=== PATIENT | male | born 1960 | race African-American/Black ===

== ENCOUNTER 2019-10-15 21:47 | Observation (INO) ==
[2019-10-15] MEDS ORDERED: PANTOPRAZOLE 40 MG VIAL IV STA (22:39)
[2019-10-15] MEDS ORDERED: LACTATED RINGERS 1,000 ML IV ONE (22:54)
[2019-10-15] MEDS ORDERED: LACTATED RINGERS 1,000 ML IV SCH (23:00)
[2019-10-15 23:41] LABS: Basophils # 0.1 10*3/uL (0.0-0.2); Basophils % 0.5 % (0.0-0.8); Eosinophils % 0.1 % (0.00-10.9); Hematocrit 42.2 VOL% (42.0-52.0); Hemoglobin 13.7 GM/DL (14.0-18.0); Immature Granulocytes % 4.9 %; Immature Granulocytes Absolute 0.51 #; Lymphocytes # 0.8 10*3/uL (1.4-4.0); Lymphocytes % 7.2 % (21.2-54.2); Mean Corpuscular HGB Conc 32.5 GM/DL (32-36); Mean Platelet Volume 13.1 FL (9.6-12.0); Monocytes % 7.2 % (1.7-12.7); Neutrophils % 80.1 % (38.7-73.9); Platelet Count 95 T/CUMM (130-400); Red Blood Count 4.54 MC/CUMM (3.8-5.5); Red Cell Distribution Width 13.1 % (9.3-17.3); White Blood Count 10.4 T/CUMM (4-12)
[2019-10-15 23:47] LABS: INR 0.9; PT Patient Result 10.3 SECS (9.6-12.2)
[2019-10-16] LABS: Alanine Aminotransferase 44 U/L (16-61); Alkaline Phosphatase 116 U/L (45-117); Aspartate Amino Transferase 24 U/L (0-37); Bilirubin,Total < 0.39 MG/DL (0.2-1.0); Blood Urea Nitrogen 52 MG/DL (7-18); Calcium 8.9 MG/DL (8.5-10.1); Estimated Glom Filtration Rate 26 ML/MIN; Glucose 82 MG/DL (74-106); Osmolality,Calculated 289.5 MOS/KG (273-304); Total Protein 7.3 G/DL (6.4-8.3)
[2019-10-16] MEDS ORDERED: LACTULOSE 20 GM/30 ML UDCUP PO PRN (00:39)
[2019-10-16] MEDS ORDERED: ONDANSETRON 4 MG/2 ML VIAL IV PRN (00:39)
[2019-10-16] MEDS ORDERED: BISACODYL 5 MG TABLET PO PRN (00:39)
[2019-10-16] MEDS ORDERED: DOCUSATE SODIUM 100 MG CAPSULE PO PRN (00:39)
[2019-10-16] MEDS ORDERED: ACETAMINOPHEN 325 MG TABLET PO PRN (00:39)
[2019-10-16] MEDS ORDERED: hydrALAZINE 20 MG/1 ML VIAL IV PRN (01:08)
[2019-10-16 01:26] LABS: Risk Ratio 3.28; VLDL CHOLESTEROL 50.2 MG/DL
[2019-10-16] MEDS: SODIUM CHLORIDE 0.9% 1,000 ML IV SCH (02:05)
[2019-10-16 02:30] LABS: Apearance,Urine Clear (Clear); Glucose,Urine (UA) Negative (Negative); Ketones,Urine Negative (Negative); Nitrite,Urine Negative (Negative); Protein,Urine 100 MG/DL; Urine Color Amber (Yellow); Urine Specific Gravity 1.005 (1.001-1.035)
[2019-10-16 02:31] LABS: Bilirubin,Urine Negative (Negative); Blood, Urine 0.03 mg/dL (Negative); Urine Urobilinogen < 2.0 EU/DL (0.2-1.0)
[2019-10-16 02:40] LABS: Granular Casts,Urine 1 /LPF (0-1); Mucus,Urine Occasional /LPF (Occasional); RBC,Urine 2 /HPF (0-4); WBC,Urine 1 /HPF (0-6)
[2019-10-16 04:09] LABS: Lymphocytes 5 % (20-55); Platelet Estimate Decreased; Segmented Neutrophils 87 % (50-85); Total Cells Counted 100
[2019-10-16 04:10] LABS: Microcytosis Slight
[2019-10-16 05:53] LABS: Basophils % 0.6 % (0.0-0.8); Eosinophils # 0.1 10*3/uL (0.0-0.87); Eosinophils % 0.8 % (0.00-10.9); Hematocrit 35.8 VOL% (42.0-52.0); Hemoglobin 11.5 GM/DL (14.0-18.0); Immature Granulocytes % 5.9 %; Immature Granulocytes Absolute 0.42 #; Lymphocytes # 0.7 10*3/uL (1.4-4.0); Lymphocytes % 10.4 % (21.2-54.2); Mean Corpuscular HGB Conc 32.1 GM/DL (32-36); Mean Platelet Volume 13.5 FL (9.6-12.0); Neutrophils % 73.3 % (38.7-73.9); Red Blood Count 3.89 MC/CUMM (3.8-5.5); Red Cell Distribution Width 13.1 % (9.3-17.3); White Blood Count 7.1 T/CUMM (4-12)
[2019-10-16] MEDS ORDERED: MAGNESIUM SULF RIDER 2 GM in PREMIX 1 EACH IV PRN (05:57)
[2019-10-16] MEDS ORDERED: MAGNESIUM SULF RIDER 4 GM in PREMIX 1 EACH IV PRN (05:57)
[2019-10-16 06:02] LABS: Platelet Count 72 T/CUMM (130-400)
[2019-10-16 06:19] LABS: Burr Cells Few; Eosinophils 2 % (0-10); Hypochromasia Slight; Lymphocytes 9 % (20-55); Platelet Estimate Decreased; Segmented Neutrophils 83 % (50-85); Total Cells Counted 100
[2019-10-16 06:20] LABS: Microcytosis Slight
[2019-10-16 06:34] LABS: Calcium 8.3 MG/DL (8.5-10.1); Osmolality,Calculated 290.3 MOS/KG (273-304)
[2019-10-16] MEDS: PANTOPRAZOLE 40 MG VIAL IV SCH (08:46)
[2019-10-16] MEDS: NICOTINE 21 MG/24 HR PATCH TRANSDERM SCH (08:47)
[2019-10-16 11:20] LABS: Hematocrit 35.5 VOL% (42.0-52.0); Hemoglobin 11.7 GM/DL (14.0-18.0)
[2019-10-16] MEDS ORDERED: METOPROLOL TARTRATE 100 MG TABLET PO SCH ×2 (11:50→21:00)
[2019-10-16] MEDS ORDERED: amLODIPine 10 MG TABLET PO SCH (11:50)
[2019-10-16] MEDS ORDERED: METOPROLOL TARTRATE 100 MG TABLET PO ONE (12:01)
[2019-10-16] MEDS ORDERED: amLODIPine 10 MG TABLET PO ONE (12:02)
[2019-10-16] MEDS ORDERED: BISACODYL 5 MG TABLET PO ONE (14:48)
[2019-10-16] MEDS ORDERED: POLYETHYLENE GLYCOL 3350/ELECTROLYTES 4,000 ML BOTTLE PO ONE (18:00)
[2019-10-16 18:46] LABS: Hematocrit 35.6 VOL% (42.0-52.0); Hemoglobin 11.3 GM/DL (14.0-18.0)
[2019-10-16] MEDS ORDERED: MYCOPHENOLIC ACID PO SCH (21:00)
[2019-10-16] MEDS ORDERED: TACROLIMUS 5 MG PO SCH (21:00)
[2019-10-16] MEDS ORDERED: TAMSULOSIN 0.4 MG CAPSULE PO SCH (21:00)
[2019-10-16] MEDS ORDERED: SODIUM BICARBONATE 650 MG TABLET PO SCH (21:00)
[2019-10-16] MEDS ORDERED: ROSUVASTATIN 20 MG TABLET PO SCH (21:00)
[2019-10-17] MEDS: SODIUM CHLORIDE 0.9% 1,000 ML IV SCH (01:12)
[2019-10-17 02:41] LABS: Basophils % 0.6 % (0.0-0.8); Eosinophils # 0.1 10*3/uL (0.0-0.87); Eosinophils % 1.3 % (0.00-10.9); Hematocrit 34.2 VOL% (42.0-52.0); Immature Granulocytes % 4.9 %; Immature Granulocytes Absolute 0.23 #; Lymphocytes # 0.6 10*3/uL (1.4-4.0); Lymphocytes % 13.5 % (21.2-54.2); Mean Corpuscular HGB Conc 32.2 GM/DL (32-36); Mean Platelet Volume 13.8 FL (9.6-12.0); Monocytes % 13.5 % (1.7-12.7); Neutrophils % 66.2 % (38.7-73.9); Platelet Count 69 T/CUMM (130-400); Red Blood Count 3.64 MC/CUMM (3.8-5.5); Red Cell Distribution Width 13.4 % (9.3-17.3); White Blood Count 4.7 T/CUMM (4-12)
[2019-10-17 03:07] LABS: Albumin 3.1 G/DL (3.4-5.0); Bilirubin,Total 0.6 MG/DL (0.2-1.0); Calcium 8.1 MG/DL (8.5-10.1); Osmolality,Calculated 286.5 MOS/KG (273-304); Total Protein 5.6 G/DL (6.4-8.3)
[2019-10-17 03:27] LABS: Platelet Estimate Decreased
[2019-10-17 03:28] LABS: Polychromasia Slight
[2019-10-17] MEDS: SODIUM CHLORIDE 0.9% 500 ML IV SCH ×2 (07:30→17:17)
[2019-10-17] MEDS ORDERED: CHOLECALCIFEROL 1,000 UNIT TABLET PO SCH (09:00)
[2019-10-17] MEDS ORDERED: PREDNISOLONE PO SCH (09:00)
[2019-10-17] MEDS ORDERED: amLODIPine 10 MG TABLET PO SCH (09:00)
[2019-10-17] MEDS ORDERED: LIDOCAINE 2% 5 ML VIAL ONE (09:00)
[2019-10-17] MEDS ORDERED: propofoL 200 MG/20 ML VIAL IV ONE (09:00)
[2019-10-17] MEDS: NICOTINE 21 MG/24 HR PATCH TRANSDERM SCH (09:54)
[2019-10-17] MEDS: PANTOPRAZOLE 40 MG VIAL IV SCH (13:23)
[2019-10-17 16:09] VITALS: BP 181/98
[2019-10-17] MEDS ORDERED: TACROLIMUS 1 MG PO SCH (20:00)
[2019-10-17] MEDS ORDERED: METOPROLOL TARTRATE 50 MG TABLET PO SCH (21:00)
[2019-10-17] MEDS ORDERED: ATORVASTATIN 10 MG TABLET PO SCH (21:00)
[2019-10-17] MEDS ORDERED: MYCOPHENOLATE 180 MG TABLET PO SCH (21:00)
[2019-10-18] MEDS ORDERED: TACROLIMUS 1 MG PO SCH (08:00)
[2019-10-18] MEDS ORDERED: MAGNESIUM CHLORIDE 64 MG TABLET PO SCH (09:00)
== END 2019-10-17 18:14 | disposition home or self-care (01) ==
LOC: N.ED 21:47 → N.EDINP 21:47 → SUATTDRO 10-16 00:39 → N.5E 10-16 01:08
PROVIDERS: ADMIT Internal Medicine Cardiovascular Disease; ATTEND Family Medicine

== ENCOUNTER 2021-09-06 20:18 | Inpatient (IN) ==
[2021-09-06] MEDS ORDERED: cefTRIAXone 1,000 MG in SODIUM CHLORIDE 0.9% 100 ML IV STA (20:52)
[2021-09-06] MEDS ORDERED: METOPROLOL TARTRATE 5 MG/5 ML VIAL IV STA (20:52)
[2021-09-06] MEDS ORDERED: ACETAMINOPHEN 500 MG TABLET PO STA (20:52)
[2021-09-06] MEDS ORDERED: SODIUM CHLORIDE 0.9% 500 ML IV STA (20:52)
[2021-09-06] MEDS ORDERED: PIPERACILLIN/TAZOBACTAM 2,250 MG in SODIUM CHLORIDE 0.9% 100 ML IV STA (20:54)
[2021-09-06] MEDS ORDERED: PIPERACILLIN/TAZOBACTAM 3,375 MG in SODIUM CHLORIDE 0.9% 100 ML IV STA (20:55)
[2021-09-06] MEDS ORDERED: ONDANSETRON 4 MG/2 ML VIAL IV STA (21:02)
[2021-09-06 22:16] LABS: Basophils % 0.3 % (0.0-0.8); Eosinophils # 0.1 10*3/uL (0.0-0.87); Eosinophils % 1.5 % (0.00-10.9); Hematocrit 31.6 VOL% (42.0-52.0); Hemoglobin 9.2 GM/DL (14.0-18.0); Immature Granulocytes % 3.5 %; Immature Granulocytes Absolute 0.12 #; Lymphocytes # 0.3 10*3/uL (1.4-4.0); Mean Corpuscular HGB Conc 29.1 GM/DL (32-36); Mean Corpuscular Volume 98.8 FL (87-102); Mean Platelet Volume 11.6 FL (9.6-12.0); Monocytes % 9.6 % (1.7-12.7); Neutrophils % 76.1 % (38.7-73.9); Platelet Count 73 T/CUMM (130-400); Red Cell Distribution Width 14.7 % (9.3-17.3); White Blood Count 3.4 T/CUMM (4-12)
[2021-09-06 22:30] LABS: Albumin 3.2 G/DL (3.4-5.0); Bilirubin,Total 0.4 MG/DL (0.20-1.00); Potassium 5.7 MMOL/L (3.5-5.1); Total Protein 5.8 G/DL (6.4-8.2)
[2021-09-06] MEDS ORDERED: CALCIUM CHLORIDE 1,000 MG/10 ML SYRINGE IV STA (22:35)
[2021-09-06] MEDS ORDERED: SODIUM BICARBONATE 50 MEQ/50 ML VIAL IV STA (22:35)
[2021-09-06] MEDS ORDERED: DEXTROSE 50% 25 GM/50 ML VIAL IV STA (22:35)
[2021-09-06] MEDS ORDERED: INSULIN REGULAR 100 UNIT/ML IV ONE (22:36)
[2021-09-06] MEDS ORDERED: DEXTROSE 50% 25 GM/50 ML SYRINGE IV STA (22:42)
[2021-09-06] MEDS ORDERED: MORPHINE 2 MG/1 ML SYRINGE IV STA (22:55)
[2021-09-07 00:35] LABS: Bacteria,Urine Occasional /HPF (Few); Bilirubin,Urine Negative (Negative); Blood, Urine Moderate mg/dL (Negative); Glucose,Urine (UA) Negative (Negative); Hyaline Casts,Urine 1 /LPF (0-3); Ketones,Urine Negative (Negative); Mucus,Urine Occasional /LPF (Occasional); Nitrite,Urine Negative (Negative); Protein,Urine 100 MG/DL; RBC,Urine 39 /HPF (0-4); Squamous Epithelial Cell,Urine Occasional /HPF (0-10); Urine Appearance CLEAR (Clear); Urine Color Yellow (Yellow); Urine Specific Gravity 1.013 (1.001-1.035); Urine Urobilinogen < 2.0 EU/DL (0.2-1.0)
[2021-09-07] MEDS ORDERED: GLUCAGON 1 MG VIAL IM PRN (01:29)
[2021-09-07] MEDS ORDERED: MAGNESIUM SULF RIDER 2 GM/50 ML PREMIX IV PRN (01:47)
[2021-09-07 01:55] LABS: INR 1.2; PT Patient Result 13.3 SECS (10.5-12.0); Partial Thromboplastin Time 31.5 SECS (23.8-32.1)
[2021-09-07 01:57] LABS: ABG Base Excess -17.1 MMOL/L (-2.5-2.5); ABG HCO3 11.4 MMOL/L (20-26); ABG Oxygen Saturation 99.1 % (95-100); ABG PH 7.283 (7.35-7.45); ABG TCO2 7.9 MMOL/L (23-27)
[2021-09-07 02:00] LABS: ABG PCO2 17.9 MM HG (35-48)
[2021-09-07] MEDS ORDERED: CEFEPIME 2,000 MG in SODIUM CHLORIDE 0.9% 100 ML IV ONE (02:30)
[2021-09-07] MEDS: SODIUM BICARB INJ 75 MEQ in SODIUM CHLORIDE 0.45% 1,000 ML IV SCH ×2 (02:40→16:41)
[2021-09-07] MEDS ORDERED: VANCOMYCIN INJ 1,500 MG in SODIUM CHLORIDE 0.9% 500 ML IV ONE (03:00)
[2021-09-07 03:45] LABS: Basophils % 0.3 % (0.0-0.8); Eosinophils % 0.6 % (0.00-10.9); Hematocrit 31.3 VOL% (42.0-52.0); Hemoglobin 9.1 GM/DL (14.0-18.0); Immature Granulocytes % 5.5 %; Immature Granulocytes Absolute 0.17 #; Lymphocytes # 0.3 10*3/uL (1.4-4.0); Mean Corpuscular HGB Conc 29.1 GM/DL (32-36); Mean Corpuscular Volume 98.4 FL (87-102); Monocytes % 9.7 % (1.7-12.7); Neutrophils % 73.9 % (38.7-73.9); Platelet Count 75 T/CUMM (130-400); Red Blood Count 3.18 MC/CUMM (3.8-5.5); Red Cell Distribution Width 14.9 % (9.3-17.3); White Blood Count 3.1 T/CUMM (4-12)
[2021-09-07 04:11] LABS: Bilirubin,Total 0.6 MG/DL (0.20-1.00); Calcium 9.5 MG/DL (8.5-10.1); Osmolality,Calculated 319.6 MOS/KG (273-304); Potassium 5.4 MMOL/L (3.5-5.1); Risk Ratio 3.41; Thyroid Stimulating Hormone 3.7 uIU/ml (0.358-3.74); Total Protein 5.5 G/DL (6.4-8.2); VLDL Cholesterol 39.4 MG/DL
[2021-09-07] MEDS: ACETAMINOPHEN 325 MG TABLET PO PRN ×2 (04:40→14:40)
[2021-09-07] MEDS: MAGNESIUM SULF RIDER 4 GM/100 ML PREMIX IV PRN (05:27)
[2021-09-07] MEDS: DOCUSATE SODIUM 100 MG CAPSULE PO SCH ×2 (09:16→21:20)
[2021-09-07] MEDS: PANTOPRAZOLE 40 MG VIAL IV SCH (09:16)
[2021-09-07] MEDS: METOPROLOL TARTRATE 50 MG TABLET PO SCH ×2 (11:06→21:19)
[2021-09-07] MEDS: CEFEPIME 1,000 MG in SODIUM CHLORIDE 0.9% 100 ML IV SCH (14:40)
[2021-09-07 17:07] LABS: Calcium 9.2 MG/DL (8.5-10.1); Osmolality,Calculated 311.1 MOS/KG (273-304); Potassium 5.7 MMOL/L (3.5-5.1)
[2021-09-07] MEDS: SODIUM BICARB INJ 150 MEQ in DEXTROSE 5% 1,000 ML IV SCH (17:10)
[2021-09-07] MEDS: SODIUM ZIRCONIUM CYCLOSILICATE 10 GM PACK PO SCH (21:19)
[2021-09-07] MEDS: MYCOPHENOLATE 180 MG TABLET PO SCH (21:20)
[2021-09-07] MEDS: TACROLIMUS 0.5 MG CAPSULE PO SCH (21:20)
[2021-09-08] MEDS ORDERED: VANCOMYCIN INJ 1,000 MG in SODIUM CHLORIDE 0.9% 250 ML IV PRN (09:00)
[2021-09-08 13:19] LABS: Basophils % 0.3 % (0.0-0.8); Eosinophils # 0.1 10*3/uL (0.0-0.87); Eosinophils % 2.5 % (0.00-10.9); Hematocrit 28.2 VOL% (42.0-52.0); Hemoglobin 8.5 GM/DL (14.0-18.0); Immature Granulocytes % 3.7 %; Immature Granulocytes Absolute 0.13 #; Lymphocytes # 0.3 10*3/uL (1.4-4.0); Lymphocytes % 9.6 % (21.2-54.2); Mean Corpuscular HGB Conc 30.1 GM/DL (32-36); Mean Corpuscular Volume 96.2 FL (87-102); Mean Platelet Volume 12.4 FL (9.6-12.0); Monocytes % 6.8 % (1.7-12.7); NRBC # 0.02 10*3/uL; Neutrophils % 77.1 % (38.7-73.9); Platelet Count 64 T/CUMM (130-400); Red Blood Count 2.93 MC/CUMM (3.8-5.5); Red Cell Distribution Width 14.9 % (9.3-17.3); White Blood Count 3.5 T/CUMM (4-12)
[2021-09-08 13:32] LABS: ABG PH 7.452 (7.35-7.45)
[2021-09-08 13:33] LABS: ABG HCO3 10.2 MMOL/L (20-26); ABG Oxygen Saturation 98.3 % (95-100); ABG PO2 119.4 MM HG (80-95); ABG TCO2 10.6 MMOL/L (23-27)
[2021-09-08 13:37] LABS: ABG PCO2 14.9 MM HG (35-48)
[2021-09-08 14:01] LABS: Uric Acid 7.7 MG/DL (3.5-7.2)
[2021-09-08 14:09] LABS: Calcium 8.2 MG/DL (8.5-10.1); Osmolality,Calculated 306.6 MOS/KG (273-304); Potassium 3.3 MMOL/L (3.5-5.1)
[2021-09-08 14:51] LABS: Albumin 2.4 G/DL (3.4-5.0); Bilirubin,Total 0.91 MG/DL (0.20-1.00)
[2021-09-08 14:52] LABS: Osmolality,Calculated 309.4 MOS/KG (273-304); Potassium 4.1 MMOL/L (3.5-5.1)
[2021-09-08 15:17] LABS: Anisocytosis 2+; Band Neutrophils 5 % (0-10); Burr Cells 2+; Eosinophils 0 % (0-10); Lymphocytes 11 % (20-55); Segmented Neutrophils 79 % (50-85); Total Cells Counted 100
[2021-09-08 15:18] LABS: Platelet Estimate Decreased
[2021-09-08] MEDS: MAGNESIUM SULF RIDER 4 GM/100 ML PREMIX IV PRN (17:05)
[2021-09-08] MEDS: ACETAMINOPHEN 325 MG TABLET PO PRN (17:05)
[2021-09-08] MEDS ORDERED: VANCOMYCIN INJ 1,000 MG in SODIUM CHLORIDE 0.9% 250 ML IV ONE (18:00)
[2021-09-08] MEDS: SODIUM BICARB INJ 150 MEQ in DEXTROSE 5% 1,000 ML IV SCH ×2 (19:52→23:25)
[2021-09-08] MEDS: CEFEPIME 1,000 MG in SODIUM CHLORIDE 0.9% 100 ML IV SCH ×2 (19:52→19:53)
[2021-09-08] MEDS: MYCOPHENOLATE 180 MG TABLET PO SCH ×2 (19:55→21:27)
[2021-09-08] MEDS: DOCUSATE SODIUM 100 MG CAPSULE PO SCH ×2 (19:56→21:28)
[2021-09-08] MEDS: MULTIVITAMIN (CENTRUM) TABLET PO SCH (19:56)
[2021-09-08] MEDS: TACROLIMUS 0.5 MG CAPSULE PO SCH ×2 (19:56→21:27)
[2021-09-08] MEDS: METOPROLOL TARTRATE 50 MG TABLET PO SCH ×2 (19:59→21:27)
[2021-09-08] MEDS: PANTOPRAZOLE 40 MG VIAL IV SCH (19:59)
[2021-09-08] MEDS: ROSUVASTATIN 20 MG TABLET PO SCH (19:59)
[2021-09-08] MEDS: SODIUM ZIRCONIUM CYCLOSILICATE 10 GM PACK PO SCH (19:59)
[2021-09-08] MEDS: TAMSULOSIN 0.4 MG CAPSULE PO SCH (21:27)
[2021-09-08] MEDS: POTASSIUM PHOS/SOD PHOS 250 MG TABLET PO SCH (22:04)
[2021-09-09] MEDS: CEFEPIME 1,000 MG in SODIUM CHLORIDE 0.9% 100 ML IV SCH ×2 (02:24→15:39)
[2021-09-09 05:17] LABS: Eosinophils # 0.1 10*3/uL (0.0-0.87); Hematocrit 23.5 VOL% (42.0-52.0); Hemoglobin 7.1 GM/DL (14.0-18.0); Immature Granulocytes Absolute 0.06 #; Lymphocytes # 0.3 10*3/uL (1.4-4.0); Lymphocytes % 8.8 % (21.2-54.2); Mean Corpuscular HGB Conc 30.2 GM/DL (32-36); Mean Corpuscular Volume 94.4 FL (87-102); Mean Platelet Volume 12.8 FL (9.6-12.0); Monocytes % 5.1 % (1.7-12.7); Neutrophils % 81.1 % (38.7-73.9); Platelet Count 53 T/CUMM (130-400); Red Blood Count 2.49 MC/CUMM (3.8-5.5); Red Cell Distribution Width 14.5 % (9.3-17.3)
[2021-09-09 05:41] LABS: Eosinophils 2 % (0-10); Hypochromia Slight; Lymphocytes 5 % (20-55); Microcytosis 1+; Nucleated Red Blood Cells 1 (0-5); Segmented Neutrophils 90 % (50-85); Total Cells Counted 100
[2021-09-09 05:42] LABS: Acanthocytes Few; Ovalocytes Slight
[2021-09-09 05:43] LABS: Platelet Estimate Decreased
[2021-09-09 06:19] LABS: Albumin 2.1 G/DL (3.4-5.0); Bilirubin,Total 0.7 MG/DL (0.20-1.00); Calcium 8.1 MG/DL (8.5-10.1); Osmolality,Calculated 298.8 MOS/KG (273-304); Potassium 3.3 MMOL/L (3.5-5.1); Total Protein 4.1 G/DL (6.4-8.2)
[2021-09-09] MEDS: SODIUM BICARB INJ 150 MEQ in DEXTROSE 5% 1,000 ML IV SCH ×3 (08:35→23:57)
[2021-09-09] MEDS: TACROLIMUS 0.5 MG CAPSULE PO SCH (08:50)
[2021-09-09] MEDS: MULTIVITAMIN (CENTRUM) TABLET PO SCH (08:51)
[2021-09-09] MEDS: ROSUVASTATIN 20 MG TABLET PO SCH (08:51)
[2021-09-09] MEDS: DOCUSATE SODIUM 100 MG CAPSULE PO SCH ×2 (08:51→21:51)
[2021-09-09] MEDS: MYCOPHENOLATE 180 MG TABLET PO SCH ×2 (08:52→21:50)
[2021-09-09] MEDS: PANTOPRAZOLE 40 MG VIAL IV SCH (08:58)
[2021-09-09] MEDS: METOPROLOL TARTRATE 50 MG TABLET PO SCH ×2 (09:18→21:51)
[2021-09-09] MEDS ORDERED: SODIUM CHLORIDE 0.9% 500 ML IV ONE (10:30)
[2021-09-09] MEDS: POTASSIUM PHOS/SOD PHOS 250 MG TABLET PO SCH ×4 (11:13→23:55)
[2021-09-09] MEDS ORDERED: ONDANSETRON 4 MG/2 ML VIAL IV ONE (15:29)
[2021-09-09] MEDS: ACETAMINOPHEN 325 MG TABLET PO PRN ×2 (15:40→21:51)
[2021-09-09] MEDS: MORPHINE 2 MG/1 ML SYRINGE IV PRN ×2 (16:59→22:02)
[2021-09-09] MEDS: TAMSULOSIN 0.4 MG CAPSULE PO SCH (21:51)
[2021-09-10] MEDS: SODIUM BICARB INJ 150 MEQ in DEXTROSE 5% 1,000 ML IV SCH ×4 (01:23→22:00)
[2021-09-10] MEDS: MORPHINE 2 MG/1 ML SYRINGE IV PRN (01:24)
[2021-09-10] MEDS: CEFEPIME 1,000 MG in SODIUM CHLORIDE 0.9% 100 ML IV SCH ×2 (03:28→19:10)
[2021-09-10 06:12] LABS: Calcium 6.6 MG/DL (8.5-10.1); Osmolality,Calculated 289.4 MOS/KG (273-304); Potassium 4.3 MMOL/L (3.5-5.1)
[2021-09-10 06:30] LABS: Basophils % 0.9 % (0.0-0.8); Eosinophils # 0.1 10*3/uL (0.0-0.87); Hematocrit 25.1 VOL% (42.0-52.0); Hemoglobin 7.5 GM/DL (14.0-18.0); Immature Granulocytes % 4.8 %; Immature Granulocytes Absolute 0.11 #; Lymphocytes # 0.2 10*3/uL (1.4-4.0); Lymphocytes % 9.5 % (21.2-54.2); Mean Corpuscular HGB Conc 29.9 GM/DL (32-36); Mean Corpuscular Volume 97.3 FL (87-102); Mean Platelet Volume 12.4 FL (9.6-12.0); Monocytes % 7.4 % (1.7-12.7); Neutrophils % 74.4 % (38.7-73.9); Platelet Count 45 T/CUMM (130-400); Red Blood Count 2.58 MC/CUMM (3.8-5.5); Red Cell Distribution Width 14.1 % (9.3-17.3); White Blood Count 2.3 T/CUMM (4-12)
[2021-09-10 06:37] LABS: Acanthocytes Few; Eosinophils 4 % (0-10); Hypochromia 1+; Lymphocytes 10 % (20-55); Microcytosis 1+; Ovalocytes Slight; Segmented Neutrophils 82 % (50-85); Total Cells Counted 100
[2021-09-10 06:38] LABS: Platelet Estimate Decreased
[2021-09-10] MEDS ORDERED: FLUCONAZOLE INJ 200 MG/100 ML PREMIX IV SCH (09:00)
[2021-09-10] MEDS: POTASSIUM PHOS/SOD PHOS 250 MG TABLET PO SCH ×4 (09:16→23:09)
[2021-09-10] MEDS: ROSUVASTATIN 20 MG TABLET PO SCH (09:21)
[2021-09-10] MEDS: DOCUSATE SODIUM 100 MG CAPSULE PO SCH ×2 (09:21→23:09)
[2021-09-10] MEDS: ACETAMINOPHEN 325 MG TABLET PO PRN (09:21)
[2021-09-10] MEDS: MULTIVITAMIN (CENTRUM) TABLET PO SCH (09:21)
[2021-09-10] MEDS: MYCOPHENOLATE 180 MG TABLET PO SCH (09:21)
[2021-09-10] MEDS: METOPROLOL TARTRATE 50 MG TABLET PO SCH ×2 (09:21→23:10)
[2021-09-10] MEDS: PANTOPRAZOLE 40 MG VIAL IV SCH (09:33)
[2021-09-10] MEDS ORDERED: BUPIVACAINE MPF 0.25% 30 ML VIAL ONE (13:43)
[2021-09-10] MEDS ORDERED: LIDOCAINE 1%/EPI INJ 20 ML VIAL ONE (13:43)
[2021-09-10] MEDS ORDERED: VANCOMYCIN INJ 1,000 MG in SODIUM CHLORIDE 0.9% 250 ML IV ONE (15:00)
[2021-09-10] MEDS ORDERED: MIDAZOLAM 2 MG/2 ML VIAL ONE (15:58)
[2021-09-10] MEDS ORDERED: PHENYLEPHRINE 10 MG/1 ML VIAL IV ONE (16:20)
[2021-09-10] MEDS ORDERED: HYDROmorphone 2 MG/1 ML VIAL ONE (16:27)
[2021-09-10] MEDS ORDERED: ACETAMINOPHEN INJ 1,000 MG/100 ML VIAL IV ONE ×2 (16:47→17:03)
[2021-09-10] MEDS ORDERED: LIDOCAINE 2% 5 ML VIAL ONE (17:23)
[2021-09-10] MEDS ORDERED: propofoL 200 MG/20 ML VIAL IV ONE (17:23)
[2021-09-10] MEDS ORDERED: SEVOFLURANE 1 UNIT/15 MINUTE INH ONE (17:23)
[2021-09-10] MEDS ORDERED: ETOMIDATE 40 MG/20 ML VIAL IV ONE (17:23)
[2021-09-10] MEDS ORDERED: PHENYLEPHRINE 1 MG/10 ML SYRINGE IV ONE (17:24)
[2021-09-10] MEDS ORDERED: LACTATED RINGERS 1,000 ML IV ONE (17:24)
[2021-09-10] MEDS ORDERED: SODIUM CHLORIDE 0.9% 100 ML IV ONE (17:24)
[2021-09-10] MEDS ORDERED: PHENYLEPHRINE DRIP 40 MG/250 ML PREMIX IV PRN (17:51)
[2021-09-10 18:13] LABS: ABG Base Excess 7.1 MMOL/L (-2.5-2.5); ABG HCO3 30.9 MMOL/L (20-26); ABG Oxygen Saturation 95.1 % (95-100); ABG PCO2 51.8 MM HG (35-48); ABG PH 7.407 (7.35-7.45); ABG PO2 77.2 MM HG (80-95)
[2021-09-10 18:15] LABS: Basophils % 0.4 % (0.0-0.8); Eosinophils # 0.1 10*3/uL (0.0-0.87); Eosinophils % 3.2 % (0.00-10.9); Hematocrit 21.8 VOL% (42.0-52.0); Hemoglobin 6.7 GM/DL (14.0-18.0); Immature Granulocytes % 6.1 %; Immature Granulocytes Absolute 0.17 #; Lymphocytes # 0.2 10*3/uL (1.4-4.0); Lymphocytes % 7.1 % (21.2-54.2); Mean Corpuscular HGB Conc 30.7 GM/DL (32-36); Mean Corpuscular Volume 93.6 FL (87-102); Mean Platelet Volume 12.5 FL (9.6-12.0); Monocytes % 8.2 % (1.7-12.7); Platelet Count 49 T/CUMM (130-400); Red Blood Count 2.33 MC/CUMM (3.8-5.5); White Blood Count 2.8 T/CUMM (4-12)
[2021-09-10 18:27] LABS: Osmolality,Calculated 291.1 MOS/KG (273-304); Potassium 3.4 MMOL/L (3.5-5.1)
[2021-09-10 18:48] LABS: Eosinophils 2 % (0-10); Lymphocytes 7 % (20-55); Segmented Neutrophils 85 % (50-85); Total Cells Counted 100
[2021-09-10 18:49] LABS: Anisocytosis 1+; Hypochromia 1+; Schistocytes 1+
[2021-09-10 18:50] LABS: Platelet Estimate Increased; Spherocytes Few
[2021-09-10] MEDS ORDERED: SODIUM CHLORIDE 0.9% 1,000 ML IV PRN (20:37)
[2021-09-10] MEDS: TAMSULOSIN 0.4 MG CAPSULE PO SCH (23:09)
[2021-09-10] MEDS ORDERED: LACTATED RINGERS 500 ML IV ONE (23:11)
[2021-09-10] MEDS ORDERED: fentaNYL 100 MCG/2 ML VIAL IV ONE (23:52)
[2021-09-11] MEDS ORDERED: PROMETHAZINE 25 MG/1 ML VIAL IM ONE (01:21)
[2021-09-11] MEDS: ACETAMINOPHEN 650 MG SUPP RECTAL PRN ×2 (01:30→11:53)
[2021-09-11] MEDS ORDERED: SODIUM CHLORIDE 0.9% 1,000 ML IV ONE ×2 (01:47→07:56)
[2021-09-11 01:58] LABS: ABG Base Excess 6.7 MMOL/L (-2.5-2.5); ABG HCO3 30.5 MMOL/L (20-26); ABG Oxygen Saturation 93.9 % (95-100); ABG PH 7.509 (7.35-7.45); ABG PO2 64.2 MM HG (80-95); ABG TCO2 27.8 MMOL/L (23-27)
[2021-09-11 02:45] LABS: Osmolality,Calculated 290.3 MOS/KG (273-304); Potassium 4.1 MMOL/L (3.5-5.1); Total Protein 4.1 G/DL (6.4-8.2)
[2021-09-11] MEDS: MORPHINE 2 MG/1 ML SYRINGE IV PRN ×2 (03:40→06:30)
[2021-09-11] MEDS: SODIUM BICARB INJ 150 MEQ in DEXTROSE 5% 1,000 ML IV SCH (05:01)
[2021-09-11] MEDS: CEFEPIME 1,000 MG in SODIUM CHLORIDE 0.9% 100 ML IV SCH ×2 (05:45→15:18)
[2021-09-11 07:01] LABS: Eosinophils # 0.1 10*3/uL (0.0-0.87); Eosinophils % 2.2 % (0.00-10.9); Hematocrit 30.4 VOL% (42.0-52.0); Immature Granulocytes % 3.7 %; Lymphocytes # 0.2 10*3/uL (1.4-4.0); Lymphocytes % 5.6 % (21.2-54.2); Mean Corpuscular HGB Conc 31.3 GM/DL (32-36); Mean Corpuscular Volume 91.6 FL (87-102); Mean Platelet Volume 12.5 FL (9.6-12.0); Monocytes % 5.6 % (1.7-12.7); Neutrophils % 82.9 % (38.7-73.9); Platelet Count 52 T/CUMM (130-400); Red Cell Distribution Width 14.6 % (9.3-17.3); White Blood Count 2.7 T/CUMM (4-12)
[2021-09-11 07:03] LABS: Hemoglobin 9.5 GM/DL (14.0-18.0); Red Blood Count 3.32 MC/CUMM (3.8-5.5)
[2021-09-11 07:12] LABS: Calcium 8.2 MG/DL (8.5-10.1); Osmolality,Calculated 288.3 MOS/KG (273-304); Potassium 3.9 MMOL/L (3.5-5.1)
[2021-09-11 07:18] LABS: Eosinophils 5 % (0-10); Lymphocytes 10 % (20-55); Segmented Neutrophils 83 % (50-85); Total Cells Counted 100
[2021-09-11 07:19] LABS: Hypochromia 1+; Microcytosis 1+; Platelet Estimate Decreased
[2021-09-11] MEDS ORDERED: LORazepam 2 MG/1 ML VIAL IV ONE ×2 (07:25→07:45)
[2021-09-11] MEDS ORDERED: MEPERIDINE 25 MG/1 ML VIAL IV ONE (08:00)
[2021-09-11] MEDS ORDERED: LACTATED RINGERS 1,000 ML IV SCH (08:30)
[2021-09-11] MEDS: HYDROCORTISONE 100 MG VIAL IV SCH ×3 (08:56→20:45)
[2021-09-11] MEDS: PANTOPRAZOLE 40 MG VIAL IV SCH (08:56)
[2021-09-11] MEDS: MICAFUNGIN 100 MG in SODIUM CHLORIDE 0.9% 100 ML IV SCH (08:56)
[2021-09-11] MEDS: METOPROLOL TARTRATE 5 MG/5 ML VIAL IV SCH ×4 (09:03→21:25)
[2021-09-11] MEDS: POTASSIUM PHOS/SOD PHOS 250 MG TABLET PO SCH (09:07)
[2021-09-11] MEDS: MULTIVITAMIN (CENTRUM) TABLET PO SCH (09:07)
[2021-09-11] MEDS: ROSUVASTATIN 20 MG TABLET PO SCH (09:07)
[2021-09-11] MEDS ORDERED: DANTROLENE IV ONE ×3 (10:00→22:00)
[2021-09-11 13:07] LABS: Calcium 7.9 MG/DL (8.5-10.1); Osmolality,Calculated 286.4 MOS/KG (273-304); Potassium 4.6 MMOL/L (3.5-5.1)
[2021-09-11] MEDS: DEXTROSE 50% 25 GM/50 ML SYRINGE IV PRN (13:27)
[2021-09-11] MEDS: DEXTROSE 5% NACL 0.9% 1,000 ML IV SCH (18:31)
[2021-09-11 18:44] LABS: Calcium 8.1 MG/DL (8.5-10.1); Osmolality,Calculated 290.4 MOS/KG (273-304); Potassium 5.5 MMOL/L (3.5-5.1)
[2021-09-11] MEDS ORDERED: MYCOPHENOLATE 180 MG TABLET PO SCH (20:00)
[2021-09-11] MEDS: TAMSULOSIN 0.4 MG CAPSULE PO SCH (20:45)
[2021-09-12 00:40] LABS: Osmolality,Calculated 291.7 MOS/KG (273-304); Potassium 5.2 MMOL/L (3.5-5.1)
[2021-09-12] MEDS: METOPROLOL TARTRATE 5 MG/5 ML VIAL IV SCH ×6 (01:04→22:08)
[2021-09-12] MEDS: HYDROCORTISONE 100 MG VIAL IV SCH ×4 (01:05→20:13)
[2021-09-12] MEDS: MORPHINE 2 MG/1 ML SYRINGE IV PRN (02:15)
[2021-09-12 02:27] LABS: ABG Base Excess 0.7 MMOL/L (-2.5-2.5); ABG HCO3 24.8 MMOL/L (20-26); ABG Oxygen Saturation 82.9 % (95-100); ABG PCO2 33.7 MM HG (35-48); ABG PH 7.463 (7.35-7.45); ABG PO2 45.5 MM HG (80-95); ABG TCO2 21.9 MMOL/L (23-27)
[2021-09-12] MEDS: CEFEPIME 1,000 MG in SODIUM CHLORIDE 0.9% 100 ML IV SCH ×2 (03:20→18:09)
[2021-09-12] MEDS ORDERED: MEPERIDINE 25 MG/1 ML VIAL IV ONE (03:27)
[2021-09-12] MEDS: DEXTROSE 5% NACL 0.9% 1,000 ML IV SCH ×2 (04:31→18:25)
[2021-09-12 04:40] LABS: ABG Base Excess -0.7 MMOL/L (-2.5-2.5); ABG HCO3 23.5 MMOL/L (20-26); ABG Oxygen Saturation 95.2 % (95-100); ABG PCO2 37.2 MM HG (35-48); ABG PH 7.419 (7.35-7.45); ABG PO2 76.7 MM HG (80-95); ABG TCO2 24.7 MMOL/L (23-27)
[2021-09-12 04:50] LABS: Basophils % 0.2 % (0.0-0.8); Eosinophils % 0.2 % (0.00-10.9); Hematocrit 32.2 VOL% (42.0-52.0); Hemoglobin 9.9 GM/DL (14.0-18.0); Immature Granulocytes Absolute 0.22 #; Lymphocytes # 0.1 10*3/uL (1.4-4.0); Lymphocytes % 1.3 % (21.2-54.2); Mean Corpuscular HGB Conc 30.7 GM/DL (32-36); Mean Corpuscular Volume 93.3 FL (87-102); Mean Platelet Volume 12.6 FL (9.6-12.0); Monocytes % 4.7 % (1.7-12.7); Neutrophils % 89.6 % (38.7-73.9); Platelet Count 68 T/CUMM (130-400); Red Blood Count 3.45 MC/CUMM (3.8-5.5); Red Cell Distribution Width 14.9 % (9.3-17.3); White Blood Count 5.5 T/CUMM (4-12)
[2021-09-12 05:12] LABS: Band Neutrophils 1 % (0-10); Hypochromia 1+; Lymphocytes 1 % (20-55); Microcytosis 1+; Platelet Estimate Decreased; Segmented Neutrophils 94 % (50-85); Total Cells Counted 100
[2021-09-12 05:35] LABS: Calcium 8.1 MG/DL (8.5-10.1); Osmolality,Calculated 300.3 MOS/KG (273-304); Potassium 5.1 MMOL/L (3.5-5.1)
[2021-09-12] MEDS ORDERED: ETOMIDATE 20 MG/10 ML VIAL IV ONE ×3 (09:42→21:15)
[2021-09-12] MEDS ORDERED: ROCURONIUM 100 MG/10 ML VIAL IV ONE ×3 (09:43→21:16)
[2021-09-12] MEDS: MICAFUNGIN 100 MG in SODIUM CHLORIDE 0.9% 100 ML IV SCH (10:27)
[2021-09-12 11:19] LABS: ABG Base Excess -2.4 MMOL/L (-2.5-2.5); ABG HCO3 22.4 MMOL/L (20-26); ABG Oxygen Saturation 96.9 % (95-100); ABG PCO2 48.7 MM HG (35-48); ABG PH 7.305 (7.35-7.45); ABG TCO2 22.2 MMOL/L (23-27)
[2021-09-12] MEDS: MULTIVITAMIN (CENTRUM) TABLET PO SCH (13:17)
[2021-09-12] MEDS: ROSUVASTATIN 20 MG TABLET PO SCH (13:17)
[2021-09-12] MEDS: PANTOPRAZOLE 40 MG VIAL IV SCH (13:40)
[2021-09-12] MEDS ORDERED: VANCOMYCIN INJ 1,000 MG in SODIUM CHLORIDE 0.9% 250 ML IV ONE (14:00)
[2021-09-12 15:56] LABS: Calcium 7.8 MG/DL (8.5-10.1); Osmolality,Calculated 297.5 MOS/KG (273-304); Potassium 5.6 MMOL/L (3.5-5.1)
[2021-09-12 16:35] LABS: Glucose,CSF 112 MG/DL (40-70)
[2021-09-12 17:20] LABS: Lymphocytes,CSF 23 %; Monocytes,CSF 2 %; Neutrophils,CSF 75 %
[2021-09-12 17:22] LABS: Appearance,CSF Clear; Red Blood Cell,CSF < 1 C/CUMM; White Blood Cell,CSF 47 C/CUMM
[2021-09-12] MEDS: TAMSULOSIN 0.4 MG CAPSULE PO SCH (20:03)
[2021-09-12] MEDS: SODIUM CHLORIDE 0.9% 1,000 ML IV SCH (22:36)
[2021-09-13] MEDS: HYDROCORTISONE 100 MG VIAL IV SCH ×4 (01:47→20:19)
[2021-09-13] MEDS: METOPROLOL TARTRATE 5 MG/5 ML VIAL IV SCH ×6 (01:52→21:54)
[2021-09-13] MEDS: CEFEPIME 1,000 MG in SODIUM CHLORIDE 0.9% 100 ML IV SCH ×2 (03:32→15:53)
[2021-09-13 03:47] LABS: ABG Base Excess -2.3 MMOL/L (-2.5-2.5); ABG HCO3 22.5 MMOL/L (20-26); ABG Oxygen Saturation 99.5 % (95-100); ABG PCO2 37.8 MM HG (35-48); ABG PH 7.382 (7.35-7.45); ABG TCO2 20.5 MMOL/L (23-27)
[2021-09-13 03:50] LABS: Basophils % 0.2 % (0.0-0.8); Hematocrit 31.7 VOL% (42.0-52.0); Hemoglobin 9.6 GM/DL (14.0-18.0); Immature Granulocytes % 1.4 %; Immature Granulocytes Absolute 0.07 #; Lymphocytes # 0.1 10*3/uL (1.4-4.0); Lymphocytes % 1.7 % (21.2-54.2); Mean Corpuscular HGB Conc 30.3 GM/DL (32-36); Mean Corpuscular Volume 94.6 FL (87-102); Mean Platelet Volume 12.4 FL (9.6-12.0); Monocytes % 2.3 % (1.7-12.7); NRBC # 0.02 10*3/uL; Neutrophils % 94.4 % (38.7-73.9); Platelet Count 77 T/CUMM (130-400); Red Blood Count 3.35 MC/CUMM (3.8-5.5); Red Cell Distribution Width 14.9 % (9.3-17.3); White Blood Count 5.2 T/CUMM (4-12)
[2021-09-13 04:08] LABS: Albumin 1.5 G/DL (3.4-5.0); Bilirubin,Total 1.5 MG/DL (0.20-1.00); Calcium 7.6 MG/DL (8.5-10.1); Osmolality,Calculated 299.5 MOS/KG (273-304); Potassium 5.3 MMOL/L (3.5-5.1); Total Protein 4.5 G/DL (6.4-8.2)
[2021-09-13 04:18] LABS: Band Neutrophils 1 % (0-10); Lymphocytes 3 % (20-55); Platelet Estimate Decreased; Segmented Neutrophils 92 % (50-85); Total Cells Counted 100
[2021-09-13] MEDS ORDERED: DEXTROSE 50% 25 GM/50 ML VIAL IV PRN (07:54)
[2021-09-13] MEDS ORDERED: GLUCAGON 1 MG VIAL IM PRN (07:54)
[2021-09-13] MEDS: MULTIVITAMIN (CENTRUM) TABLET PO SCH (08:50)
[2021-09-13] MEDS: ROSUVASTATIN 20 MG TABLET PO SCH (08:50)
[2021-09-13] MEDS: PANTOPRAZOLE 40 MG VIAL IV SCH (08:51)
[2021-09-13] MEDS ORDERED: FLUCYTOSINE 500 MG CAPSULE PER TUBE SCH (09:00)
[2021-09-13] MEDS: SODIUM CHLORIDE 0.9% 1,000 ML IV SCH ×2 (09:06→19:22)
[2021-09-13] MEDS: AMPHOTERICIN B LIPOSOMAL IV SCH (09:30)
[2021-09-13] MEDS: DEXTROSE 5% IV SCH (09:30)
[2021-09-13 10:41] LABS: HIV Antigen/Antibody Result Nonreactive (Nonreactive); Hepatitis B Surface Ag Quant 0.37 Index; Hepatitis B Surface Ag Result Non-Reactive (NonReactive); Hepatitis C Virus Ab Quant < 0.02 Index; Hepatitis C Virus Ab Result Non-Reactive (NonReactive)
[2021-09-13] MEDS ORDERED: HEPARIN 10,000 UNIT/10 ML VIAL IV ONE (15:30)
[2021-09-13] MEDS: TAMSULOSIN 0.4 MG CAPSULE PO SCH (20:19)
[2021-09-14] MEDS: HYDROCORTISONE 100 MG VIAL IV SCH ×3 (01:21→13:25)
[2021-09-14] MEDS: METOPROLOL TARTRATE 5 MG/5 ML VIAL IV SCH ×6 (01:21→21:24)
[2021-09-14] MEDS: CEFEPIME 1,000 MG in SODIUM CHLORIDE 0.9% 100 ML IV SCH (02:27)
[2021-09-14 04:20] LABS: ABG Base Excess -1.7 MMOL/L (-2.5-2.5); ABG Oxygen Saturation 99.5 % (95-100); ABG PH 7.424 (7.35-7.45); ABG TCO2 20.5 MMOL/L (23-27)
[2021-09-14 04:24] LABS: Immature Granulocytes % 2.3 %; Lymphocytes # 0.1 10*3/uL (1.4-4.0); Lymphocytes % 1.8 % (21.2-54.2); Mean Corpuscular HGB Conc 31.4 GM/DL (32-36); Mean Corpuscular Volume 93.6 FL (87-102); Mean Platelet Volume 12.1 FL (9.6-12.0); Monocytes % 2.5 % (1.7-12.7); Neutrophils % 93.4 % (38.7-73.9); Red Cell Distribution Width 14.5 % (9.3-17.3); White Blood Count 4.4 T/CUMM (4-12)
[2021-09-14 04:37] LABS: Hematocrit 27.7 VOL% (42.0-52.0); Hemoglobin 8.7 GM/DL (14.0-18.0); Platelet Count 53 T/CUMM (130-400); Red Blood Count 2.96 MC/CUMM (3.8-5.5)
[2021-09-14 04:38] LABS: Albumin 1.4 G/DL (3.4-5.0); Bilirubin,Total 1.7 MG/DL (0.20-1.00); Calcium 6.9 MG/DL (8.5-10.1); Osmolality,Calculated 296.3 MOS/KG (273-304); Potassium 4.2 MMOL/L (3.5-5.1); Total Protein 4.2 G/DL (6.4-8.2)
[2021-09-14 04:44] LABS: Band Neutrophils 2 % (0-10); Lymphocytes 3 % (20-55); Nucleated Red Blood Cells 1 (0-5); Platelet Estimate Decreased; Segmented Neutrophils 92 % (50-85); Total Cells Counted 100
[2021-09-14 04:45] LABS: Hypochromia 1+; Microcytosis 1+
[2021-09-14] MEDS: SODIUM CHLORIDE 0.9% 1,000 ML IV SCH ×2 (05:10→14:06)
[2021-09-14] MEDS: ROSUVASTATIN 20 MG TABLET PO SCH (08:30)
[2021-09-14] MEDS: PANTOPRAZOLE 40 MG VIAL IV SCH (08:45)
[2021-09-14] MEDS: MULTIVITAMIN (CENTRUM) TABLET PO SCH (08:46)
[2021-09-14] MEDS: DEXTROSE 5% IV SCH (11:33)
[2021-09-14] MEDS: AMPHOTERICIN B LIPOSOMAL IV SCH (11:33)
[2021-09-14] MEDS: MORPHINE 2 MG/1 ML SYRINGE IV PRN ×2 (14:15→22:56)
[2021-09-14] MEDS: FLUCYTOSINE 500 MG CAPSULE PER TUBE SCH (20:10)
[2021-09-14] MEDS: TAMSULOSIN 0.4 MG CAPSULE PO SCH (20:11)
[2021-09-14 22:46] LABS: Enterovirus PCR Source CSF
[2021-09-15] MEDS: SODIUM CHLORIDE 0.9% 1,000 ML IV SCH ×2 (00:01→10:16)
[2021-09-15] MEDS: HYDROCORTISONE 100 MG VIAL IV SCH ×3 (00:48→20:46)
[2021-09-15] MEDS: fentaNYL INJ 1,250 MCG in SODIUM CHLORIDE 0.9% 225 ML IV PRN ×2 (01:00→17:39)
[2021-09-15] MEDS: METOPROLOL TARTRATE 5 MG/5 ML VIAL IV SCH ×6 (01:53→21:07)
[2021-09-15 04:13] LABS: ABG Base Excess -1.5 MMOL/L (-2.5-2.5); ABG HCO3 23.2 MMOL/L (20-26); ABG Oxygen Saturation 99.5 % (95-100); ABG PCO2 35.8 MM HG (35-48); ABG PH 7.411 (7.35-7.45); ABG TCO2 21.3 MMOL/L (23-27)
[2021-09-15 04:26] LABS: Hematocrit 24.1 VOL% (42.0-52.0); Hemoglobin 7.8 GM/DL (14.0-18.0); Immature Granulocytes % 8.2 %; Immature Granulocytes Absolute 0.36 #; Lymphocytes # 0.1 10*3/uL (1.4-4.0); Lymphocytes % 1.4 % (21.2-54.2); Mean Corpuscular HGB Conc 32.4 GM/DL (32-36); Mean Corpuscular Volume 92.7 FL (87-102); Mean Platelet Volume 13.1 FL (9.6-12.0); Monocytes % 3.4 % (1.7-12.7); NRBC # 0.04 10*3/uL; Platelet Count 50 T/CUMM (130-400); Red Cell Distribution Width 14.2 % (9.3-17.3); White Blood Count 4.4 T/CUMM (4-12)
[2021-09-15 04:47] LABS: Band Neutrophils 1 % (0-10); Lymphocytes 1 % (20-55); Nucleated Red Blood Cells 5 (0-5); Platelet Estimate Decreased; Segmented Neutrophils 93 % (50-85); Total Cells Counted 100
[2021-09-15 04:49] LABS: Hypochromia 1+; Microcytosis 1+
[2021-09-15 05:01] LABS: Albumin 1.3 G/DL (3.4-5.0); Calcium 6.9 MG/DL (8.5-10.1); Osmolality,Calculated 296.4 MOS/KG (273-304); Potassium 3.8 MMOL/L (3.5-5.1)
[2021-09-15] MEDS: MULTIVITAMIN (CENTRUM) TABLET PO SCH (09:21)
[2021-09-15] MEDS: ROSUVASTATIN 20 MG TABLET PO SCH (09:21)
[2021-09-15] MEDS: PANTOPRAZOLE 40 MG VIAL IV SCH (09:22)
[2021-09-15] MEDS: cefTRIAXone 1,000 MG in SODIUM CHLORIDE 0.9% 100 ML IV SCH (09:23)
[2021-09-15 12:31] LABS: M. Tuberculosis PCR Result Negative (Negative); M. Tuberculosis PCR Source CSF
[2021-09-15 12:41] LABS: Adenovirus PCR Negative (Negative); Specimen Source CSF
[2021-09-15] MEDS: AMPHOTERICIN B LIPOSOMAL IV SCH (13:04)
[2021-09-15] MEDS: DEXTROSE 5% IV SCH (13:04)
[2021-09-15] MEDS: TAMSULOSIN 0.4 MG CAPSULE PO SCH (20:46)
[2021-09-16] MEDS: SODIUM CHLORIDE 0.9% 1,000 ML IV SCH ×2 (00:16→12:39)
[2021-09-16] MEDS: METOPROLOL TARTRATE 5 MG/5 ML VIAL IV SCH ×6 (02:42→21:33)
[2021-09-16] MEDS: fentaNYL INJ 1,250 MCG in SODIUM CHLORIDE 0.9% 225 ML IV PRN ×2 (04:15→16:46)
[2021-09-16 04:42] LABS: ABG Base Excess -4.2 MMOL/L (-2.5-2.5); ABG HCO3 20.9 MMOL/L (20-26); ABG Oxygen Saturation 98.8 % (95-100); ABG PCO2 34.6 MM HG (35-48); ABG PH 7.379 (7.35-7.45); ABG TCO2 19.1 MMOL/L (23-27)
[2021-09-16 05:02] LABS: Hematocrit 24.6 VOL% (42.0-52.0); Hemoglobin 7.9 GM/DL (14.0-18.0); Immature Granulocytes % 9.3 %; Immature Granulocytes Absolute 0.56 #; Lymphocytes # 0.1 10*3/uL (1.4-4.0); Lymphocytes % 1.5 % (21.2-54.2); Mean Corpuscular HGB Conc 32.1 GM/DL (32-36); Mean Corpuscular Volume 92.5 FL (87-102); Monocytes % 6.3 % (1.7-12.7); NRBC # 0.06 10*3/uL; Neutrophils % 82.9 % (38.7-73.9); Platelet Count 45 T/CUMM (130-400); Red Blood Count 2.66 MC/CUMM (3.8-5.5); Red Cell Distribution Width 14.3 % (9.3-17.3)
[2021-09-16 05:28] LABS: Band Neutrophils 2 % (0-10); Hypochromia 1+; Lymphocytes 4 % (20-55); Microcytosis 1+; Platelet Estimate Decreased; Segmented Neutrophils 88 % (50-85); Total Cells Counted 100
[2021-09-16 05:32] LABS: Albumin 1.3 G/DL (3.4-5.0); Bilirubin,Total 3.5 MG/DL (0.20-1.00); Calcium 7.3 MG/DL (8.5-10.1); Osmolality,Calculated 303.5 MOS/KG (273-304); Potassium 4.1 MMOL/L (3.5-5.1)
[2021-09-16] MEDS: ROSUVASTATIN 20 MG TABLET PO SCH (08:22)
[2021-09-16] MEDS: cefTRIAXone 1,000 MG in SODIUM CHLORIDE 0.9% 100 ML IV SCH (08:22)
[2021-09-16] MEDS: MULTIVITAMIN (CENTRUM) TABLET PO SCH (08:22)
[2021-09-16] MEDS: PANTOPRAZOLE 40 MG VIAL IV SCH (08:23)
[2021-09-16] MEDS: HYDROCORTISONE 100 MG VIAL IV SCH ×2 (08:23→20:54)
[2021-09-16 10:11] LABS: CMV PCR Source CSF; Epstein-Barr Virus Result Negative (Negative); Epstein-Barr Virus Source CSF; Specimen Source CSF
[2021-09-16] MEDS: DEXTROSE 5% IV SCH (12:28)
[2021-09-16] MEDS: AMPHOTERICIN B LIPOSOMAL IV SCH (12:28)
[2021-09-16] MEDS: INSULIN LISPRO 100 UNIT/ML SUBCUT SCH ×2 (12:36→17:50)
[2021-09-16] MEDS: TAMSULOSIN 0.4 MG CAPSULE PO SCH (20:53)
[2021-09-16] MEDS: INSULIN GLARGINE 100 UNIT/ML SUBCUT SCH (21:33)
[2021-09-17] MEDS: INSULIN LISPRO 100 UNIT/ML SUBCUT SCH ×4 (00:28→17:43)
[2021-09-17] MEDS: fentaNYL INJ 1,250 MCG in SODIUM CHLORIDE 0.9% 225 ML IV PRN ×2 (01:00→06:55)
[2021-09-17] MEDS: METOPROLOL TARTRATE 5 MG/5 ML VIAL IV SCH ×6 (01:53→21:42)
[2021-09-17] MEDS: SODIUM CHLORIDE 0.9% 1,000 ML IV SCH ×2 (01:53→14:07)
[2021-09-17 03:13] LABS: ABG Base Excess -4.5 MMOL/L (-2.5-2.5); ABG HCO3 20.6 MMOL/L (20-26); ABG PCO2 38.5 MM HG (35-48); ABG PH 7.341 (7.35-7.45); ABG PO2 90.5 MM HG (80-95); ABG TCO2 19.5 MMOL/L (23-27)
[2021-09-17 03:41] LABS: Albumin 1.2 G/DL (3.4-5.0); Bilirubin,Total 2.1 MG/DL (0.20-1.00); Calcium 7.7 MG/DL (8.5-10.1); Osmolality,Calculated 297.4 MOS/KG (273-304); Potassium 3.7 MMOL/L (3.5-5.1)
[2021-09-17 04:05] LABS: Basophils % 0.1 % (0.0-0.8); Eosinophils % 0.1 % (0.00-10.9); Hematocrit 25.9 VOL% (42.0-52.0); Hemoglobin 8.3 GM/DL (14.0-18.0); Immature Granulocytes % 14.4 %; Immature Granulocytes Absolute 1.32 #; Lymphocytes # 0.1 10*3/uL (1.4-4.0); Lymphocytes % 1.1 % (21.2-54.2); Mean Corpuscular Volume 91.8 FL (87-102); Monocytes % 6.2 % (1.7-12.7); Neutrophils % 78.1 % (38.7-73.9); Platelet Count 41 T/CUMM (130-400); Red Blood Count 2.82 MC/CUMM (3.8-5.5); Red Cell Distribution Width 14.3 % (9.3-17.3); White Blood Count 9.2 T/CUMM (4-12)
[2021-09-17 04:25] LABS: Band Neutrophils 1 % (0-10); Hypochromia 1+; Lymphocytes 1 % (20-55); Microcytosis 1+; Nucleated Red Blood Cells 1 (0-5); Platelet Estimate Decreased; Segmented Neutrophils 93 % (50-85); Total Cells Counted 100
[2021-09-17] MEDS: MULTIVITAMIN (CENTRUM) TABLET PO SCH (09:26)
[2021-09-17] MEDS: ROSUVASTATIN 20 MG TABLET PO SCH (09:26)
[2021-09-17] MEDS: PANTOPRAZOLE 40 MG VIAL IV SCH (09:27)
[2021-09-17] MEDS: HYDROCORTISONE 100 MG VIAL IV SCH ×2 (09:27→21:15)
[2021-09-17] MEDS: SODIUM HYPOCHLORITE 0.25% IRRIG 473 ML BOTTLE TOP SCH (09:28)
[2021-09-17] MEDS ORDERED: hydrALAZINE 20 MG/1 ML VIAL IV ONE (10:30)
[2021-09-17 12:05] LABS: Albumin, Serum 2300 mg/dL; IgG Index, CSF 0.61 (<=0.85); IgG, CSF 3.8 mg/dL (<=8.1); IgG, Serum 413 mg/dL (767 - 1590); IgG/Albumin Ratio, CSF 0.11 (<=0.21); Synthesis Rate, CSF 4.99 mg/24 h (<=12)
[2021-09-17 12:33] LABS: West Nile Virus Ab, IgG, CSF Negative (Negative); West Nile Virus Ab, IgM, CSF Negative (Negative)
[2021-09-17] MEDS ORDERED: SODIUM CHLORIDE 0.9% 500 ML IV ONE (13:04)
[2021-09-17] MEDS: DEXTROSE 5% IV SCH (13:43)
[2021-09-17] MEDS: AMPHOTERICIN B LIPOSOMAL IV SCH (13:43)
[2021-09-17] MEDS: INSULIN GLARGINE 100 UNIT/ML SUBCUT SCH (21:15)
[2021-09-17] MEDS: TAMSULOSIN 0.4 MG CAPSULE PO SCH (21:15)
[2021-09-18] MEDS: INSULIN LISPRO 100 UNIT/ML SUBCUT SCH ×4 (01:07→17:32)
[2021-09-18] MEDS: METOPROLOL TARTRATE 5 MG/5 ML VIAL IV SCH ×6 (01:41→21:15)
[2021-09-18 03:26] LABS: ABG Base Excess -7.9 MMOL/L (-2.5-2.5); ABG Oxygen Saturation 98.8 % (95-100); ABG PCO2 27.6 MM HG (35-48); ABG PH 7.379 (7.35-7.45); ABG TCO2 15.2 MMOL/L (23-27)
[2021-09-18 03:27] LABS: Basophils % 0.1 % (0.0-0.8); Eosinophils % 0.1 % (0.00-10.9); Hematocrit 24.1 VOL% (42.0-52.0); Hemoglobin 7.8 GM/DL (14.0-18.0); Immature Granulocytes % 12.9 %; Immature Granulocytes Absolute 1.77 #; Lymphocytes # 0.1 10*3/uL (1.4-4.0); Lymphocytes % 0.9 % (21.2-54.2); Mean Corpuscular HGB Conc 32.4 GM/DL (32-36); Mean Corpuscular Volume 89.9 FL (87-102); Monocytes % 7.1 % (1.7-12.7); Neutrophils % 78.9 % (38.7-73.9); Red Blood Count 2.68 MC/CUMM (3.8-5.5); Red Cell Distribution Width 14.6 % (9.3-17.3)
[2021-09-18 03:41] LABS: White Blood Count 13.7 T/CUMM (4-12)
[2021-09-18 03:43] LABS: Platelet Count 37 T/CUMM (130-400)
[2021-09-18 03:47] LABS: Albumin 1.2 G/DL (3.4-5.0); Bilirubin,Total 2.4 MG/DL (0.20-1.00); Calcium 7.9 MG/DL (8.5-10.1); Osmolality,Calculated 298.7 MOS/KG (273-304); Potassium 3.3 MMOL/L (3.5-5.1); Total Protein 3.8 G/DL (6.4-8.2)
[2021-09-18 03:54] LABS: Band Neutrophils 1 % (0-10); Lymphocytes 2 % (20-55); Metamyelocytes 3 %; Microcytosis 1+; Myelocytes 1 %; Ovalocytes Slight; Promyelocytes 1 %; Segmented Neutrophils 86 % (50-85); Total Cells Counted 100
[2021-09-18 03:55] LABS: Platelet Estimate Decreased
[2021-09-18 03:56] LABS: Hypochromia Slight
[2021-09-18] MEDS: SODIUM CHLORIDE 0.9% 1,000 ML IV SCH ×3 (04:58→20:16)
[2021-09-18] MEDS: fentaNYL INJ 1,250 MCG in SODIUM CHLORIDE 0.9% 225 ML IV PRN ×2 (06:24→19:12)
[2021-09-18] MEDS: MIDAZOLAM 100 MG in SODIUM CHLORIDE 0.9% 80 ML IV PRN (06:49)
[2021-09-18] MEDS: ROSUVASTATIN 20 MG TABLET PO SCH (09:38)
[2021-09-18] MEDS: PANTOPRAZOLE 40 MG VIAL IV SCH (09:38)
[2021-09-18] MEDS: MULTIVITAMIN (CENTRUM) TABLET PO SCH (09:38)
[2021-09-18] MEDS: SODIUM HYPOCHLORITE 0.25% IRRIG 473 ML BOTTLE TOP SCH (09:39)
[2021-09-18] MEDS: HYDROCORTISONE 100 MG VIAL IV SCH ×2 (09:39→21:14)
[2021-09-18] MEDS ORDERED: LACTATED RINGERS 1,000 ML IV ONE (10:16)
[2021-09-18] MEDS ORDERED: VANCOMYCIN INJ 750 MG in SODIUM CHLORIDE 0.9% 250 ML IV PRN (10:18)
[2021-09-18] MEDS ORDERED: ALBUMIN 25% 50 GM/200 ML VIAL IV ONE (10:18)
[2021-09-18] MEDS ORDERED: VANCOMYCIN INJ 2,000 MG in SODIUM CHLORIDE 0.9% 500 ML IV ONE (11:00)
[2021-09-18] MEDS: MEROPENEM 500 MG in SODIUM CHLORIDE 0.9% 100 ML IV SCH (11:05)
[2021-09-18] MEDS: POTASSIUM BICARB EFFERVESCENT 20 MEQ TAB.EFF PO SCH (11:05)
[2021-09-18] MEDS: AMPHOTERICIN B LIPOSOMAL IV SCH (12:12)
[2021-09-18] MEDS: DEXTROSE 5% IV SCH (12:12)
[2021-09-18] MEDS ORDERED: LACTATED RINGERS 500 ML IV ONE (12:25)
[2021-09-18] MEDS ORDERED: SODIUM HYPOCHLORITE 0.25% IRR 1 APPLIC in IV BAG 1 EACH IRRIG PRN (13:00)
[2021-09-18] MEDS ORDERED: NOREPINEPHRINE 4 MG/4 ML VIAL IV ONE (14:29)
[2021-09-18] MEDS: NOREPINEPHRINE 16 MG in SODIUM CHLORIDE 0.9% 234 ML IV PRN ×2 (14:37→20:16)
[2021-09-18] MEDS ORDERED: HEPARIN 10,000 UNIT/10 ML VIAL IV SCH (16:45)
[2021-09-18] MEDS: FAMOTIDINE 20 MG/2 ML VIAL IV SCH (16:55)
[2021-09-18] MEDS: FLUCYTOSINE 500 MG CAPSULE PER TUBE SCH (21:14)
[2021-09-18] MEDS: TAMSULOSIN 0.4 MG CAPSULE PO SCH (21:14)
[2021-09-18] MEDS: INSULIN GLARGINE 100 UNIT/ML SUBCUT SCH (21:14)
[2021-09-18] MEDS: ONDANSETRON 4 MG/2 ML VIAL IV PRN (21:39)
[2021-09-19] MEDS: INSULIN LISPRO 100 UNIT/ML SUBCUT SCH ×4 (00:39→17:06)
[2021-09-19] MEDS: METOPROLOL TARTRATE 5 MG/5 ML VIAL IV SCH ×6 (01:50→21:46)
[2021-09-19] MEDS: NOREPINEPHRINE 16 MG in SODIUM CHLORIDE 0.9% 234 ML IV PRN (03:15)
[2021-09-19] MEDS: FAMOTIDINE 20 MG/2 ML VIAL IV SCH ×2 (03:57→16:59)
[2021-09-19 04:01] LABS: ABG HCO3 17.3 MMOL/L (20-26); ABG Oxygen Saturation 96.3 % (95-100); ABG PCO2 30.3 MM HG (35-48); ABG PH 7.375 (7.35-7.45); ABG PO2 94.6 MM HG (80-95); ABG TCO2 18.3 MMOL/L (23-27); Basophils # 0.1 10*3/uL (0.0-0.2); Basophils % 0.4 % (0.0-0.8); Immature Granulocytes % 21.2 %; Immature Granulocytes Absolute 6.43 #; Lymphocytes # 0.4 10*3/uL (1.4-4.0); Lymphocytes % 1.4 % (21.2-54.2); Mean Corpuscular Volume 88.7 FL (87-102); Monocytes % 7.3 % (1.7-12.7); NRBC # 0.42 10*3/uL; Neutrophils % 69.7 % (38.7-73.9); Platelet Count 65 T/CUMM (130-400); Red Blood Count 2.82 MC/CUMM (3.8-5.5); Red Cell Distribution Width 15.1 % (9.3-17.3); White Blood Count 30.4 T/CUMM (4-12)
[2021-09-19 04:24] LABS: Band Neutrophils 6 % (0-10); Lymphocytes 2 % (20-55); Myelocytes 2 %; Nucleated Red Blood Cells 5 (0-5); Platelet Estimate Decreased; Segmented Neutrophils 83 % (50-85); Total Cells Counted 100
[2021-09-19 04:25] LABS: Hypochromia 1+; Microcytosis 1+
[2021-09-19 04:28] LABS: Albumin 1.5 G/DL (3.4-5.0); Bilirubin,Total 1.9 MG/DL (0.20-1.00); Calcium 8.3 MG/DL (8.5-10.1); Osmolality,Calculated 294.8 MOS/KG (273-304); Potassium 3.6 MMOL/L (3.5-5.1); Total Protein 4.4 G/DL (6.4-8.2)
[2021-09-19] MEDS: fentaNYL INJ 1,250 MCG in SODIUM CHLORIDE 0.9% 225 ML IV PRN ×3 (04:38→22:47)
[2021-09-19] MEDS: POTASSIUM BICARB EFFERVESCENT 20 MEQ TAB.EFF PO SCH (08:32)
[2021-09-19] MEDS: MULTIVITAMIN (CENTRUM) TABLET PO SCH (08:33)
[2021-09-19] MEDS: SODIUM HYPOCHLORITE 0.25% IRRIG 473 ML BOTTLE TOP SCH (08:33)
[2021-09-19] MEDS: HYDROCORTISONE 100 MG VIAL IV SCH ×2 (08:33→20:40)
[2021-09-19] MEDS: MEROPENEM 500 MG in SODIUM CHLORIDE 0.9% 100 ML IV SCH (09:46)
[2021-09-19] MEDS: SODIUM CHLORIDE 0.9% 1,000 ML IV SCH ×2 (09:52→19:00)
[2021-09-19] MEDS: ONDANSETRON 4 MG/2 ML VIAL IV PRN (11:18)
[2021-09-19] MEDS: AMPHOTERICIN B LIPOSOMAL IV SCH (12:14)
[2021-09-19] MEDS: DEXTROSE 5% IV SCH (12:14)
[2021-09-19] MEDS: TAMSULOSIN 0.4 MG CAPSULE PO SCH (20:23)
[2021-09-19] MEDS: INSULIN GLARGINE 100 UNIT/ML SUBCUT SCH (20:41)
[2021-09-20] MEDS: INSULIN LISPRO 100 UNIT/ML SUBCUT SCH ×4 (00:03→18:38)
[2021-09-20] MEDS: METOPROLOL TARTRATE 5 MG/5 ML VIAL IV SCH ×6 (01:44→21:41)
[2021-09-20] MEDS: FAMOTIDINE 20 MG/2 ML VIAL IV SCH ×2 (04:19→17:21)
[2021-09-20 04:20] LABS: ABG Base Excess -9.3 MMOL/L (-2.5-2.5); ABG HCO3 16.9 MMOL/L (20-26); ABG Oxygen Saturation 97.1 % (95-100); ABG PCO2 30.5 MM HG (35-48); ABG PH 7.322 (7.35-7.45); ABG TCO2 14.8 MMOL/L (23-27)
[2021-09-20 04:21] LABS: Basophils # 0.1 10*3/uL (0.0-0.2); Basophils % 0.2 % (0.0-0.8); Hematocrit 22.7 VOL% (42.0-52.0); Hemoglobin 7.3 GM/DL (14.0-18.0); Immature Granulocytes % 12.4 %; Immature Granulocytes Absolute 3.49 #; Lymphocytes # 0.2 10*3/uL (1.4-4.0); Lymphocytes % 0.7 % (21.2-54.2); Mean Corpuscular HGB Conc 32.2 GM/DL (32-36); Mean Corpuscular Volume 89.7 FL (87-102); Monocytes % 6.4 % (1.7-12.7); NRBC # 0.19 10*3/uL; Neutrophils % 80.3 % (38.7-73.9); Platelet Count 59 T/CUMM (130-400); Red Blood Count 2.53 MC/CUMM (3.8-5.5); Red Cell Distribution Width 15.4 % (9.3-17.3); White Blood Count 28.1 T/CUMM (4-12)
[2021-09-20 04:48] LABS: Band Neutrophils 5 % (0-10); Hypochromia Slight; Lymphocytes 4 % (20-55); Platelet Estimate Decreased; Segmented Neutrophils 87 % (50-85)
[2021-09-20 04:49] LABS: Total Cells Counted 100
[2021-09-20 04:53] LABS: Albumin 1.3 G/DL (3.4-5.0); Bilirubin,Total 1.9 MG/DL (0.20-1.00); Calcium 8.5 MG/DL (8.5-10.1); Osmolality,Calculated 296.1 MOS/KG (273-304); Total Protein 4.1 G/DL (6.4-8.2)
[2021-09-20] MEDS: MULTIVITAMIN (CENTRUM) TABLET PO SCH (08:17)
[2021-09-20] MEDS: POTASSIUM BICARB EFFERVESCENT 20 MEQ TAB.EFF PO SCH (08:17)
[2021-09-20] MEDS: HYDROCORTISONE 100 MG VIAL IV SCH ×2 (08:17→20:31)
[2021-09-20] MEDS: SODIUM HYPOCHLORITE 0.25% IRRIG 473 ML BOTTLE TOP SCH (08:17)
[2021-09-20] MEDS ORDERED: SODIUM BICARB INJ 150 MEQ in DEXTROSE 5% 850 ML IV SCH (09:30)
[2021-09-20] MEDS: NOREPINEPHRINE 16 MG in SODIUM CHLORIDE 0.9% 234 ML IV PRN (09:41)
[2021-09-20] MEDS: fentaNYL INJ 1,250 MCG in SODIUM CHLORIDE 0.9% 225 ML IV PRN (09:42)
[2021-09-20] MEDS: MEROPENEM 500 MG in SODIUM CHLORIDE 0.9% 100 ML IV SCH (10:03)
[2021-09-20] MEDS: AMPHOTERICIN B LIPOSOMAL IV SCH (12:00)
[2021-09-20] MEDS: DEXTROSE 5% IV SCH (12:00)
[2021-09-20] MEDS ORDERED: VANCOMYCIN INJ 750 MG in SODIUM CHLORIDE 0.9% 250 ML IV ONE (17:00)
[2021-09-20] MEDS: TAMSULOSIN 0.4 MG CAPSULE PO SCH (20:32)
[2021-09-20] MEDS: FLUCYTOSINE 500 MG CAPSULE PER TUBE SCH (20:35)
[2021-09-20] MEDS: INSULIN GLARGINE 100 UNIT/ML SUBCUT SCH (20:35)
[2021-09-21] MEDS: INSULIN LISPRO 100 UNIT/ML SUBCUT SCH ×5 (00:04→23:40)
[2021-09-21] MEDS: fentaNYL INJ 1,250 MCG in SODIUM CHLORIDE 0.9% 225 ML IV PRN (00:08)
[2021-09-21] MEDS: MIDAZOLAM 100 MG in SODIUM CHLORIDE 0.9% 80 ML IV PRN (00:08)
[2021-09-21 01:54] LABS: ABG Base Excess -4.3 MMOL/L (-2.5-2.5); ABG HCO3 20.1 MMOL/L (20-26); ABG Oxygen Saturation 96.2 % (95-100); ABG PCO2 33.7 MM HG (35-48); ABG PH 7.393 (7.35-7.45); ABG PO2 92.8 MM HG (80-95); ABG TCO2 21.1 MMOL/L (23-27)
[2021-09-21] MEDS ORDERED: SODIUM CHLORIDE 0.9% 250 ML IV ONE (01:56)
[2021-09-21 01:58] LABS: Basophils # 0.1 10*3/uL (0.0-0.2); Basophils % 0.1 % (0.0-0.8); Hematocrit 19.1 VOL% (42.0-52.0); Immature Granulocytes % 10.6 %; Immature Granulocytes Absolute 3.72 #; Lymphocytes # 0.3 10*3/uL (1.4-4.0); Lymphocytes % 0.7 % (21.2-54.2); Mean Corpuscular HGB Conc 31.9 GM/DL (32-36); Mean Corpuscular Volume 88.8 FL (87-102); Monocytes % 6.6 % (1.7-12.7); NRBC # 0.22 10*3/uL; Platelet Count 66 T/CUMM (130-400); Red Blood Count 2.15 MC/CUMM (3.8-5.5); Red Cell Distribution Width 15.9 % (9.3-17.3); White Blood Count 35.1 T/CUMM (4-12)
[2021-09-21 02:00] LABS: Hemoglobin 6.1 GM/DL (14.0-18.0)
[2021-09-21] MEDS ORDERED: SODIUM CHLORIDE 0.9% 1,000 ML IV PRN (02:09)
[2021-09-21] MEDS ORDERED: FUROSEMIDE 20 MG/2 ML VIAL IV ONE (02:11)
[2021-09-21 02:21] LABS: Albumin 1.1 G/DL (3.4-5.0); Bilirubin,Total 2.6 MG/DL (0.20-1.00); Calcium 8.2 MG/DL (8.5-10.1); Potassium 4.2 MMOL/L (3.5-5.1)
[2021-09-21] MEDS: METOPROLOL TARTRATE 5 MG/5 ML VIAL IV SCH (02:23)
[2021-09-21 02:28] LABS: Band Neutrophils 3 % (0-10); Metamyelocytes 2 %; Segmented Neutrophils 92 % (50-85); Total Cells Counted 100
[2021-09-21 02:29] LABS: Microcytosis 1+; Platelet Estimate Decreased; Polychromasia Few
[2021-09-21 02:31] LABS: Hypochromia Slight
[2021-09-21] MEDS: FAMOTIDINE 20 MG/2 ML VIAL IV SCH ×2 (03:54→15:11)
[2021-09-21] MEDS: METOCLOPRAMIDE 10 MG/2 ML VIAL IV SCH ×3 (06:21→21:04)
[2021-09-21] MEDS: MULTIVITAMIN (CENTRUM) TABLET PO SCH (08:08)
[2021-09-21] MEDS: SODIUM HYPOCHLORITE 0.25% IRRIG 473 ML BOTTLE TOP SCH (08:09)
[2021-09-21] MEDS: POTASSIUM BICARB EFFERVESCENT 20 MEQ TAB.EFF PO SCH (08:09)
[2021-09-21] MEDS: HYDROCORTISONE 100 MG VIAL IV SCH ×2 (08:09→20:16)
[2021-09-21 08:45] LABS: Basophils % 0.1 % (0.0-0.8); Hematocrit 23.8 VOL% (42.0-52.0); Hemoglobin 7.6 GM/DL (14.0-18.0); Immature Granulocytes % 10.4 %; Immature Granulocytes Absolute 3.15 #; Lymphocytes # 0.2 10*3/uL (1.4-4.0); Lymphocytes % 0.7 % (21.2-54.2); Mean Corpuscular HGB Conc 31.9 GM/DL (32-36); Mean Corpuscular Volume 88.8 FL (87-102); Mean Platelet Volume 13.8 FL (9.6-12.0); Monocytes % 7.6 % (1.7-12.7); NRBC # 0.29 10*3/uL; Neutrophils % 81.2 % (38.7-73.9); Platelet Count 68 T/CUMM (130-400); Red Blood Count 2.68 MC/CUMM (3.8-5.5); Red Cell Distribution Width 15.7 % (9.3-17.3); White Blood Count 30.3 T/CUMM (4-12)
[2021-09-21 09:08] LABS: Band Neutrophils 6 % (0-10); Lymphocytes 4 % (20-55); Metamyelocytes 5 %; Myelocytes 3 %; Nucleated Red Blood Cells 3 (0-5); Platelet Estimate Decreased; Promyelocytes 1 %; Segmented Neutrophils 73 % (50-85); Total Cells Counted 100
[2021-09-21 09:09] LABS: Anisocytosis 2+; Macrocytosis 1+; Polychromasia Slight; Tear Drop Cells Few
[2021-09-21] MEDS: MEROPENEM 500 MG in SODIUM CHLORIDE 0.9% 100 ML IV SCH (09:31)
[2021-09-21 09:34] LABS: INR 1.6; PT Patient Result 17.6 SECS (10.5-12.0)
[2021-09-21] MEDS: DEXTROSE 5% IV SCH (12:15)
[2021-09-21] MEDS: AMPHOTERICIN B LIPOSOMAL IV SCH (12:15)
[2021-09-21] MEDS ORDERED: NOREPINEPHRINE 8 MG in SODIUM CHLORIDE 0.9% 242 ML IV PRN (15:15)
[2021-09-21 17:35] LABS: Basophils # 0.1 10*3/uL (0.0-0.2); Basophils % 0.1 % (0.0-0.8); Hemoglobin 7.9 GM/DL (14.0-18.0); Immature Granulocytes % 10.1 %; Immature Granulocytes Absolute 3.39 #; Lymphocytes # 0.3 10*3/uL (1.4-4.0); Lymphocytes % 0.9 % (21.2-54.2); Mean Corpuscular HGB Conc 31.6 GM/DL (32-36); Mean Corpuscular Volume 89.6 FL (87-102); Monocytes % 6.3 % (1.7-12.7); NRBC # 0.35 10*3/uL; Neutrophils % 82.6 % (38.7-73.9); Platelet Count 59 T/CUMM (130-400); Red Blood Count 2.79 MC/CUMM (3.8-5.5); Red Cell Distribution Width 15.9 % (9.3-17.3); White Blood Count 33.7 T/CUMM (4-12)
[2021-09-21 18:46] LABS: Band Neutrophils 1 % (0-10); Lymphocytes 1 % (20-55); Metamyelocytes 4 %; Myelocytes 3 %; Nucleated Red Blood Cells 2 (0-5); Segmented Neutrophils 88 % (50-85); Total Cells Counted 100
[2021-09-21 18:47] LABS: Anisocytosis 2+; Poikilocytosis 1+; Polychromasia 2+
[2021-09-21 18:48] LABS: Burr Cells Few; Schistocytes Few; Spherocytes 1+
[2021-09-21 18:49] LABS: Platelet Estimate Adequate
[2021-09-21] MEDS: TAMSULOSIN 0.4 MG CAPSULE PO SCH (20:16)
[2021-09-21] MEDS: INSULIN GLARGINE 100 UNIT/ML SUBCUT SCH (20:17)
[2021-09-22] MEDS: ACETAMINOPHEN 325 MG TABLET PO PRN (00:08)
[2021-09-22] MEDS: FAMOTIDINE 20 MG/2 ML VIAL IV SCH ×2 (04:32→15:40)
[2021-09-22 04:35] LABS: ABG Base Excess -6.6 MMOL/L (-2.5-2.5); ABG Oxygen Saturation 97.8 % (95-100); ABG PCO2 30.7 MM HG (35-48); ABG PH 7.369 (7.35-7.45); ABG TCO2 16.1 MMOL/L (23-27)
[2021-09-22 04:36] LABS: Basophils # 0.1 10*3/uL (0.0-0.2); Basophils % 0.3 % (0.0-0.8); Eosinophils % 0.1 % (0.00-10.9); Hematocrit 26.4 VOL% (42.0-52.0); Hemoglobin 8.3 GM/DL (14.0-18.0); Immature Granulocytes % 9.7 %; Immature Granulocytes Absolute 3.07 #; Lymphocytes # 0.3 10*3/uL (1.4-4.0); Lymphocytes % 0.9 % (21.2-54.2); Mean Corpuscular HGB Conc 31.4 GM/DL (32-36); Mean Corpuscular Volume 90.7 FL (87-102); Mean Platelet Volume 13.8 FL (9.6-12.0); NRBC # 0.29 10*3/uL; Platelet Count 69 T/CUMM (130-400); Red Blood Count 2.91 MC/CUMM (3.8-5.5); Red Cell Distribution Width 16.1 % (9.3-17.3); White Blood Count 31.5 T/CUMM (4-12)
[2021-09-22 04:58] LABS: Albumin 1.1 G/DL (3.4-5.0); Bilirubin,Total 1.8 MG/DL (0.20-1.00); Calcium 8.4 MG/DL (8.5-10.1); Potassium 4.5 MMOL/L (3.5-5.1); Total Protein 4.2 G/DL (6.4-8.2)
[2021-09-22 05:02] LABS: Band Neutrophils 2 % (0-10); Lymphocytes 2 % (20-55); Metamyelocytes 1 %; Nucleated Red Blood Cells 1 (0-5); Platelet Estimate Decreased; Polychromasia Few; Segmented Neutrophils 87 % (50-85); Total Cells Counted 100
[2021-09-22 05:03] LABS: Anisocytosis 1+; Macrocytosis Slight; Microcytosis Slight
[2021-09-22] MEDS: INSULIN LISPRO 100 UNIT/ML SUBCUT SCH ×4 (05:54→23:46)
[2021-09-22] MEDS: METOCLOPRAMIDE 10 MG/2 ML VIAL IV SCH ×3 (06:18→22:03)
[2021-09-22] MEDS: MULTIVITAMIN (CENTRUM) TABLET PO SCH (08:09)
[2021-09-22] MEDS: SODIUM HYPOCHLORITE 0.25% IRRIG 473 ML BOTTLE TOP SCH (08:09)
[2021-09-22] MEDS: POTASSIUM BICARB EFFERVESCENT 20 MEQ TAB.EFF PO SCH (08:09)
[2021-09-22] MEDS: HYDROCORTISONE 100 MG VIAL IV SCH ×3 (08:09→20:27)
[2021-09-22] MEDS: MEROPENEM 500 MG in SODIUM CHLORIDE 0.9% 100 ML IV SCH (09:30)
[2021-09-22] MEDS: ALBUMIN 5% 12.5 GM/250 ML VIAL IV SCH ×2 (11:53→20:28)
[2021-09-22] MEDS: AMPHOTERICIN B LIPOSOMAL IV SCH (12:22)
[2021-09-22] MEDS: DEXTROSE 5% IV SCH (12:22)
[2021-09-22] MEDS: NOREPINEPHRINE 16 MG in SODIUM CHLORIDE 0.9% 234 ML IV PRN (12:51)
[2021-09-22] MEDS: FLUCYTOSINE 500 MG CAPSULE PER TUBE SCH (20:27)
[2021-09-22] MEDS: TAMSULOSIN 0.4 MG CAPSULE PO SCH (20:27)
[2021-09-22] MEDS: INSULIN GLARGINE 100 UNIT/ML SUBCUT SCH (20:29)
[2021-09-23] MEDS: HYDROCORTISONE 100 MG VIAL IV SCH ×4 (01:22→20:18)
[2021-09-23] MEDS: ALBUMIN 5% 12.5 GM/250 ML VIAL IV SCH (04:30)
[2021-09-23] MEDS: FAMOTIDINE 20 MG/2 ML VIAL IV SCH ×2 (04:30→17:20)
[2021-09-23 04:54] LABS: ABG Base Excess -7.5 MMOL/L (-2.5-2.5); ABG HCO3 16.7 MMOL/L (20-26); ABG Oxygen Saturation 97.7 % (95-100); ABG PCO2 28.2 MM HG (35-48); ABG PH 7.391 (7.35-7.45); ABG PO2 118.2 MM HG (80-95); ABG TCO2 17.6 MMOL/L (23-27)
[2021-09-23 04:57] LABS: Hematocrit 20.5 VOL% (42.0-52.0); Immature Granulocytes % 7.6 %; Immature Granulocytes Absolute 1.75 #; Lymphocytes # 0.1 10*3/uL (1.4-4.0); Lymphocytes % 0.4 % (21.2-54.2); Mean Corpuscular HGB Conc 30.7 GM/DL (32-36); Mean Corpuscular Volume 91.9 FL (87-102); Mean Platelet Volume 12.8 FL (9.6-12.0); Monocytes % 5.2 % (1.7-12.7); NRBC # 0.08 10*3/uL; Neutrophils % 86.8 % (38.7-73.9); Platelet Count 53 T/CUMM (130-400); Red Blood Count 2.23 MC/CUMM (3.8-5.5); Red Cell Distribution Width 17.1 % (9.3-17.3)
[2021-09-23 04:59] LABS: Hemoglobin 6.3 GM/DL (14.0-18.0)
[2021-09-23 05:14] LABS: Nucleated Red Blood Cells 1 (0-5); Segmented Neutrophils 95 % (50-85); Total Cells Counted 100
[2021-09-23 05:15] LABS: Hypochromia 2+; Microcytosis 1+; Platelet Estimate Decreased
[2021-09-23 05:33] LABS: Albumin 1.4 G/DL (3.4-5.0); Bilirubin,Total 1.9 MG/DL (0.20-1.00); Calcium 7.8 MG/DL (8.5-10.1); Potassium 5.4 MMOL/L (3.5-5.1); Total Protein 3.6 G/DL (6.4-8.2)
[2021-09-23] MEDS: METOCLOPRAMIDE 10 MG/2 ML VIAL IV SCH ×3 (05:54→22:32)
[2021-09-23] MEDS: INSULIN LISPRO 100 UNIT/ML SUBCUT SCH ×3 (05:55→17:22)
[2021-09-23] MEDS: SODIUM HYPOCHLORITE 0.25% IRRIG 473 ML BOTTLE TOP SCH (08:51)
[2021-09-23] MEDS: POTASSIUM BICARB EFFERVESCENT 20 MEQ TAB.EFF PO SCH (08:51)
[2021-09-23] MEDS: MULTIVITAMIN (CENTRUM) TABLET PO SCH (08:51)
[2021-09-23] MEDS: MEROPENEM 500 MG in SODIUM CHLORIDE 0.9% 100 ML IV SCH (10:38)
[2021-09-23] MEDS: DEXTROSE 5% IV SCH (13:32)
[2021-09-23] MEDS: AMPHOTERICIN B LIPOSOMAL IV SCH (13:32)
[2021-09-23] MEDS ORDERED: VANCOMYCIN INJ 750 MG in SODIUM CHLORIDE 0.9% 250 ML IV ONE (17:00)
[2021-09-23 18:25] LABS: Hematocrit 25.6 VOL% (42.0-52.0); Hemoglobin 8.1 GM/DL (14.0-18.0)
[2021-09-23] MEDS: TAMSULOSIN 0.4 MG CAPSULE PO SCH (20:18)
[2021-09-23] MEDS: FLUCYTOSINE 500 MG CAPSULE PER TUBE SCH (20:19)
[2021-09-23] MEDS: INSULIN GLARGINE 100 UNIT/ML SUBCUT SCH (20:29)
[2021-09-24] MEDS: HYDROCORTISONE 100 MG VIAL IV SCH ×4 (02:13→20:23)
[2021-09-24 03:40] LABS: ABG Base Excess -4.8 MMOL/L (-2.5-2.5); ABG HCO3 20.4 MMOL/L (20-26); ABG Oxygen Saturation 98.1 % (95-100); ABG TCO2 17.5 MMOL/L (23-27)
[2021-09-24 03:43] LABS: Basophils % 0.1 % (0.0-0.8); Hematocrit 25.8 VOL% (42.0-52.0); Hemoglobin 8.2 GM/DL (14.0-18.0); Immature Granulocytes % 7.1 %; Immature Granulocytes Absolute 1.43 #; Lymphocytes # 0.1 10*3/uL (1.4-4.0); Lymphocytes % 0.5 % (21.2-54.2); Mean Corpuscular HGB Conc 31.8 GM/DL (32-36); Mean Corpuscular Volume 89.6 FL (87-102); Mean Platelet Volume 13.1 FL (9.6-12.0); NRBC # 0.06 10*3/uL; Neutrophils % 88.3 % (38.7-73.9); Platelet Count 53 T/CUMM (130-400); Red Blood Count 2.88 MC/CUMM (3.8-5.5); Red Cell Distribution Width 17.4 % (9.3-17.3); White Blood Count 20.1 T/CUMM (4-12)
[2021-09-24 04:04] LABS: Band Neutrophils 3 % (0-10); Hypochromia 1+; Lymphocytes 1 % (20-55); Microcytosis 1+; Platelet Estimate Decreased; Segmented Neutrophils 93 % (50-85); Total Cells Counted 100
[2021-09-24] MEDS: FAMOTIDINE 20 MG/2 ML VIAL IV SCH ×2 (04:10→16:38)
[2021-09-24 04:24] LABS: Albumin 1.2 G/DL (3.4-5.0); Bilirubin,Total 2.2 MG/DL (0.20-1.00); Calcium 7.4 MG/DL (8.5-10.1); Osmolality,Calculated 305.5 MOS/KG (273-304); Potassium 5.5 MMOL/L (3.5-5.1); Total Protein 3.3 G/DL (6.4-8.2)
[2021-09-24] MEDS: METOCLOPRAMIDE 10 MG/2 ML VIAL IV SCH ×3 (05:17→21:52)
[2021-09-24] MEDS: INSULIN LISPRO 100 UNIT/ML SUBCUT SCH ×5 (05:34→23:27)
[2021-09-24] MEDS: POTASSIUM BICARB EFFERVESCENT 20 MEQ TAB.EFF PO SCH (09:58)
[2021-09-24] MEDS: MULTIVITAMIN (CENTRUM) TABLET PO SCH (09:58)
[2021-09-24 10:03] LABS: INR 1.9; PT Patient Result 20.5 SECS (10.5-12.0)
[2021-09-24] MEDS: MEROPENEM 500 MG in SODIUM CHLORIDE 0.9% 100 ML IV SCH (10:06)
[2021-09-24] MEDS: SODIUM HYPOCHLORITE 0.25% IRRIG 473 ML BOTTLE TOP SCH (10:07)
[2021-09-24 11:09] VITALS: BP 186/92
[2021-09-24] MEDS ORDERED: SODIUM POLYSTYRENE SULFATE 15 GM/60 ML BOTTLE PO ONE (11:32)
[2021-09-24 11:39] LABS: Glucose,CSF 31 MG/DL (40-70)
[2021-09-24 12:21] LABS: Appearance,CSF Clear; Lymphocytes,CSF 90 %; Neutrophils,CSF 10 %; Red Blood Cell,CSF 2 C/CUMM; White Blood Cell,CSF 23 C/CUMM
[2021-09-24] MEDS: DEXTROSE 5% IV SCH (12:57)
[2021-09-24] MEDS: AMPHOTERICIN B LIPOSOMAL IV SCH (12:57)
[2021-09-24] MEDS: CEFEPIME 1,000 MG in SODIUM CHLORIDE 0.9% 100 ML IV SCH (16:38)
[2021-09-24] MEDS: FLUCYTOSINE 500 MG CAPSULE PER TUBE SCH (20:23)
[2021-09-24] MEDS: TAMSULOSIN 0.4 MG CAPSULE PO SCH (20:23)
[2021-09-24] MEDS: INSULIN GLARGINE 100 UNIT/ML SUBCUT SCH (20:59)
[2021-09-25] MEDS: HYDROCORTISONE 100 MG VIAL IV SCH ×4 (02:43→20:46)
[2021-09-25 03:19] LABS: ABG Base Excess -5.6 MMOL/L (-2.5-2.5); ABG HCO3 19.8 MMOL/L (20-26); ABG Oxygen Saturation 96.6 % (95-100); ABG PCO2 28.4 MM HG (35-48); ABG PH 7.411 (7.35-7.45); ABG PO2 89.9 MM HG (80-95); ABG TCO2 16.5 MMOL/L (23-27)
[2021-09-25] MEDS: FAMOTIDINE 20 MG/2 ML VIAL IV SCH ×2 (04:02→17:02)
[2021-09-25 04:23] LABS: Basophils # 0.1 10*3/uL (0.0-0.2); Basophils % 0.2 % (0.0-0.8); Hemoglobin 9.3 GM/DL (14.0-18.0); Immature Granulocytes % 6.2 %; Immature Granulocytes Absolute 1.42 #; Lymphocytes # 0.1 10*3/uL (1.4-4.0); Lymphocytes % 0.4 % (21.2-54.2); Mean Corpuscular HGB Conc 32.1 GM/DL (32-36); Mean Corpuscular Volume 90.1 FL (87-102); Mean Platelet Volume 12.9 FL (9.6-12.0); Monocytes % 3.5 % (1.7-12.7); NRBC # 0.07 10*3/uL; Neutrophils % 89.7 % (38.7-73.9); Platelet Count 64 T/CUMM (130-400); Red Blood Count 3.22 MC/CUMM (3.8-5.5); Red Cell Distribution Width 17.6 % (9.3-17.3)
[2021-09-25 04:46] LABS: Lymphocytes 3 % (20-55); Platelet Estimate Decreased; Segmented Neutrophils 92 % (50-85); Total Cells Counted 100
[2021-09-25 04:47] LABS: Hypochromia Slight
[2021-09-25 04:57] LABS: Albumin 1.2 G/DL (3.4-5.0); Bilirubin,Total 2.7 MG/DL (0.20-1.00); Calcium 7.5 MG/DL (8.5-10.1); Osmolality,Calculated 317.4 MOS/KG (273-304); Potassium 5.8 MMOL/L (3.5-5.1); Total Protein 3.5 G/DL (6.4-8.2)
[2021-09-25] MEDS: METOCLOPRAMIDE 10 MG/2 ML VIAL IV SCH ×3 (05:41→22:13)
[2021-09-25] MEDS: INSULIN LISPRO 100 UNIT/ML SUBCUT SCH ×4 (05:46→23:59)
[2021-09-25] MEDS ORDERED: ALBUMIN 25% 50 GM/200 ML VIAL IV ONE ×2 (09:00→09:49)
[2021-09-25] MEDS: POTASSIUM BICARB EFFERVESCENT 20 MEQ TAB.EFF PO SCH (09:41)
[2021-09-25] MEDS: SODIUM HYPOCHLORITE 0.25% IRRIG 473 ML BOTTLE TOP SCH (09:51)
[2021-09-25] MEDS: MULTIVITAMIN (CENTRUM) TABLET PO SCH (09:51)
[2021-09-25] MEDS: AMPHOTERICIN B LIPOSOMAL IV SCH (12:17)
[2021-09-25] MEDS: DEXTROSE 5% IV SCH (12:17)
[2021-09-25] MEDS: CEFEPIME 1,000 MG in SODIUM CHLORIDE 0.9% 100 ML IV SCH (17:03)
[2021-09-25] MEDS ORDERED: NOREPINEPHRINE 8 MG in SODIUM CHLORIDE 0.9% 242 ML IV PRN (17:44)
[2021-09-25] MEDS: TAMSULOSIN 0.4 MG CAPSULE PO SCH (20:46)
[2021-09-25] MEDS: FLUCYTOSINE 500 MG CAPSULE PER TUBE SCH (20:46)
[2021-09-25] MEDS: INSULIN GLARGINE 100 UNIT/ML SUBCUT SCH (20:47)
[2021-09-25] MEDS ORDERED: LORazepam 2 MG/1 ML VIAL ONE (22:58)
[2021-09-25] MEDS ORDERED: LORazepam 2 MG/1 ML VIAL IV ONE ×2 (23:03→23:14)
[2021-09-25] MEDS ORDERED: MIDAZOLAM 100 MG in SODIUM CHLORIDE 0.9% 80 ML IV PRN (23:06)
[2021-09-26] MEDS: HYDROCORTISONE 100 MG VIAL IV SCH (02:56)
[2021-09-26 03:40] LABS: Basophils % 0.1 % (0.0-0.8); Hematocrit 23.2 VOL% (42.0-52.0); Hemoglobin 7.1 GM/DL (14.0-18.0); Immature Granulocytes % 6.8 %; Immature Granulocytes Absolute 1.65 #; Lymphocytes # 0.2 10*3/uL (1.4-4.0); Lymphocytes % 0.7 % (21.2-54.2); Mean Corpuscular HGB Conc 30.6 GM/DL (32-36); Mean Corpuscular Volume 92.4 FL (87-102); Mean Platelet Volume 12.6 FL (9.6-12.0); Monocytes % 2.2 % (1.7-12.7); NRBC # 0.16 10*3/uL; Neutrophils % 90.2 % (38.7-73.9); Platelet Count 62 T/CUMM (130-400); Red Blood Count 2.51 MC/CUMM (3.8-5.5); Red Cell Distribution Width 17.1 % (9.3-17.3); White Blood Count 24.4 T/CUMM (4-12)
[2021-09-26 04:00] LABS: Hypochromia 1+; Lymphocytes 1 % (20-55); Microcytosis 1+; Nucleated Red Blood Cells 2 (0-5); Platelet Estimate Decreased; Segmented Neutrophils 98 % (50-85); Total Cells Counted 100
[2021-09-26 04:14] LABS: ABG Base Excess -6.4 MMOL/L (-2.5-2.5); ABG Oxygen Saturation 84.3 % (95-100); ABG PH 7.258 (7.35-7.45); ABG PO2 62.1 MM HG (80-95); ABG TCO2 19.5 MMOL/L (23-27)
[2021-09-26 04:25] LABS: Albumin 1.6 G/DL (3.4-5.0); Bilirubin,Total 1.8 MG/DL (0.20-1.00); Calcium 6.9 MG/DL (8.5-10.1); Osmolality,Calculated 308.4 MOS/KG (273-304); Potassium 5.7 MMOL/L (3.5-5.1); Total Protein 3.6 G/DL (6.4-8.2)
[2021-09-26] MEDS: FAMOTIDINE 20 MG/2 ML VIAL IV SCH (04:45)
[2021-09-26] MEDS: METOCLOPRAMIDE 10 MG/2 ML VIAL IV SCH (05:48)
[2021-09-26] MEDS ORDERED: NOREPINEPHRINE 16 MG in SODIUM CHLORIDE 0.9% 234 ML IV PRN (05:55)
[2021-09-26] MEDS: INSULIN LISPRO 100 UNIT/ML SUBCUT SCH (05:57)
[2021-09-26] MEDS: DEXTROSE 50% 25 GM/50 ML SYRINGE IV PRN (07:34)
[2021-09-26] MEDS ORDERED: HYDROCORTISONE 100 MG VIAL IV SCH (09:20)
== END 2021-09-26 08:30 | disposition expired | DRG 853 ==
LOC: EDUNIT# → EDBD → N.ED 20:18 → N.EDINP 09-07 00:04 → SUATTDRO 09-07 00:04 → N.EDINP 09-07 03:57 → N.TELES 09-07 04:26 → N.CC 09-10 18:40
PROVIDERS: ADMIT Internal Medicine; ATTEND Internal Medicine